=== PATIENT | male | born 1960 | race American Indian/Alaskan Native ===

== ENCOUNTER → 2023-04-07 11:59 | Outpatient (REF) | payer BC, SELFPAY ==
[2023-04-07 12:24] LABS: % Basophils 0.5 % (0-2); % Eosinophils 2.2 % (0-6); % Immature Granulocytes 0.2 % (0-0.5); % Lymphocytes 28.6 % (20.5-51.1); % Monocytes 8.5 % (1.7-9.3); Absolute Eosinophils 0.1 10^3/uL (0-0.7); Absolute Lymphocytes 1.7 10^3/uL (1.2-3.4); Absolute Monocytes 0.5 10^3/uL (0.1-0.6); Absolute Neutrophils 3.5 10^3/uL (1.4-6.5); Hematocrit 46.9 % (39.0-52.0); Hemoglobin 16.2 g/dL (13.0-18.0); Mean Corp Hgb Conc. 34.5 g/dL (33.0-37.0); Mean Corpuscular Hgb 30.6 pg (27.0-31.0); Mean Corpuscular Volume 88.5 fL (80.0-94.0); Mean Platelet Volume 9.9 fL (7.4-10.4); Nucleated Red Blood Cells % 0 % (-); Platelet Count 212 10^3/uL (130-400); Red Cell Dist. Width 12.6 % (11.5-14.5); White Blood Cell Count 5.9 10^3/uL (4.8-10.8)
[2023-04-07 12:55] LABS: ALT (SGPT) 31 U/L (0-50); AST (SGOT) 33 U/L (17-59); Albumin 4.3 g/dl (3.5-5.0); Alkaline Phosphatase 89 U/L (38-126); Blood Urea Nitrogen 20 mg/dl (9-20); Calcium 9.4 mg/dl (8.4-10.2); Carbon Dioxide 28 mmol/L (22-30); Chloride 104 mmol/L (98-107); Glucose 94 mg/dl (70-99); HDL Cholesterol 58 mg/dl; LDL Cholesterol, Calculated 26 mg/dl; Potassium 4.4 mmol/L (3.5-5.1); Sodium 136 mmol/L (135-145); Total Cholesterol 103 mg/dl (50-199); Total Protein 6.9 g/dl (6.3-8.2); Triglyceride 96 mg/dl (10-149); Very Low Density Lipoprotein 19 mg/dl (0-30); eGFR > 60.00
== END ==
LOC: REG 11:59
PROVIDERS: ATTENDING PHYSICIAN Internal Medicine Interventional Cardiology; FAMILY PHYSICIAN Family Medicine
DX: E78.2 Mixed hyperlipidemia (principal); I42.9 Cardiomyopathy, unspecified; I35.0 Nonrheumatic aortic (valve) stenosis; R79.89 Other specified abnormal findings of blood chemistry; Z83.3 Family history of diabetes mellitus
CPT/HCPCS: 36415; 80053; 80061; 83036; 85025

== ENCOUNTER → 2023-09-13 10:18 | Outpatient (REF) | payer BC, SELFPAY | LOC: RCS 10:18 | PROVIDERS: ATTENDING PHYSICIAN Internal Medicine Interventional Cardiology; FAMILY PHYSICIAN Family Medicine | DX: I42.9 Cardiomyopathy, unspecified (principal); I35.0 Nonrheumatic aortic (valve) stenosis; I42.8 Other cardiomyopathies | CPT/HCPCS: 93306 ==

== ENCOUNTER → 2023-10-11 09:08 | Outpatient (REF) | payer BC, SELFPAY | LOC: RCS 09:08 | PROVIDERS: ATTENDING PHYSICIAN Internal Medicine Interventional Cardiology; FAMILY PHYSICIAN Family Medicine | DX: I42.9 Cardiomyopathy, unspecified (principal); I42.8 Other cardiomyopathies; I35.0 Nonrheumatic aortic (valve) stenosis; I10 Essential (primary) hypertension | CPT/HCPCS: 93017; 93350 ==

== ENCOUNTER → 2023-11-02 14:01 | Outpatient (REF) | payer BC, SELFPAY ==
[2023-11-02 16:33] LABS: Blood Urea Nitrogen 18 mg/dl (9-20); Calcium 9.6 mg/dl (8.4-10.2); Carbon Dioxide 23 mmol/L (22-30); Chloride 104 mmol/L (98-107); Glucose 88 mg/dl (70-99); Potassium 4.6 mmol/L (3.5-5.1); Sodium 141 mmol/L (135-145); eGFR > 60.00
== END ==
LOC: REG 14:01
PROVIDERS: ATTENDING PHYSICIAN Internal Medicine Interventional Cardiology; FAMILY PHYSICIAN Family Medicine
DX: I10 Essential (primary) hypertension (principal); I42.8 Other cardiomyopathies
CPT/HCPCS: 36415; 80048

== ENCOUNTER → 2023-11-03 12:20 | Outpatient (REF) | payer BC, SELFPAY | LOC: RAD 12:20 | PROVIDERS: ATTENDING PHYSICIAN Internal Medicine Interventional Cardiology; FAMILY PHYSICIAN Family Medicine; REFERRING PHYSICIAN Thoracic Surgery (Cardiothoracic Vascular Surgery) | DX: I35.0 Nonrheumatic aortic (valve) stenosis (principal) | CPT/HCPCS: 75572; Q9967 ==

== ENCOUNTER 2023-12-09 05:16 | Inpatient (IN) | payer BC, SELFPAY ==
[2023-11-18 09:02] VITALS: BMI 30.5
[2023-11-18 09:47] LABS: % Basophils 0.3 % (0-2); % Immature Granulocytes 0.1 % (0-0.5); % Monocytes 9.4 % (1.7-9.3); % Neutrophils 68.2 % (42.2-75.2); Absolute Eosinophils 0.1 10^3/uL (0-0.7); Absolute Lymphocytes 1.4 10^3/uL (1.2-3.4); Absolute Monocytes 0.7 10^3/uL (0.1-0.6); Absolute Neutrophils 4.7 10^3/uL (1.4-6.5); Mean Corp Hgb Conc. 34.7 g/dL (33.0-37.0); Mean Corpuscular Hgb 30.5 pg (27.0-31.0); Mean Corpuscular Volume 87.8 fL (80.0-94.0); Mean Platelet Volume 10.4 fL (7.4-10.4); Nucleated Red Blood Cells % 0 % (-); Platelet Count 205 10^3/uL (130-400); Red Blood Cell Count 5.58 10^6/uL (4.70-6.10); Red Cell Dist. Width 12.5 % (11.5-14.5); White Blood Cell Count 6.9 10^3/uL (4.8-10.8)
[2023-11-18 09:47] LABS: Urine Albumin Negative (Neg - Trace); Urine Bilirubin Negative (Negative); Urine Character Clear (Clear); Urine Color Yellow; Urine Glucose 3+ (Negative); Urine Ketone Negative (Negative); Urine Leukocyte Negative (Negative); Urine Nitrite Negative (Negative); Urine Occult Blood Negative (Negative); Urine Specific Gravity 1.015 (<1.030); Urine Urobilinogen Negative (Neg - 1+)
[2023-11-18 09:57] LABS: APTT 36.1 Sec (23.4-35.0)
[2023-11-18 10:05] LABS: ALT (SGPT) 30 U/L (0-50); AST (SGOT) 29 U/L (17-59); Albumin 4.7 g/dl (3.5-5.0); Alkaline Phosphatase 87 U/L (38-126); Blood Urea Nitrogen 18 mg/dl (9-20); Calcium 9.8 mg/dl (8.4-10.2); Carbon Dioxide 26 mmol/L (22-30); Chloride 101 mmol/L (98-107); Direct Bilirubin 0.2 mg/dl (0.0-0.4); Estimated Creatinine Clearance 92 ml/min; Glucose 98 mg/dl (70-99); Potassium 3.9 mmol/L (3.5-5.1); Sodium 139 mmol/L (135-145); Total Bilirubin 1.1 mg/dl (0.2-1.3); Total Protein 7.2 g/dl (6.3-8.2); eGFR > 60.00
--- NOTE | 2023-11-18 10:49 | CM ---
CM following for DC planning needs.
Met w/ patient, spouse Leslie during PATs for planned AVR, 12/08.
Pt. resides w/ spouse in a private, 1 story home w/ 0 GRAHAM. Functionally, patient is quite indep. at baseline w/ ADLs, mobility without the use of any assisted device.
Reviewed pre and post op routines.
Soap, shower instructions and Cardiac Surgery booklet provided.
Reviewed post op restrictions to include lifting, driving, flying and sternal precautions.
Discussed post op MD appointments, Cardiac Rehab + visit from CT Transitional Care RN.
Plan is AVR, 12/08.
Anticipate DC to home w/ CT Transitional Care RN.
CM to follow.
[2023-11-18 10:54] LABS: Glycohemoglobin (HgbA1c) 5.7 % (4.0-5.6)
[2023-12-09] VITALS (11 sets, daily range): BP systolic 93–140; BP diastolic 52–67; BMI 29.5
[2023-12-09] MEDS: MAGNESIUM OXIDE 500 MG PO (05:54)
[2023-12-09] MEDS: PROTONIX 40 MG PO (05:55)
[2023-12-09] MEDS: BACTROBAN 2% OINTMENT 1 APPLIC NASAL ×2 (05:55→19:52)
[2023-12-09] MEDS: LOPRESSOR 12.5 MG PO (05:55)
--- NOTE | 2023-12-09 06:05 | W.CVOR.SURPR ---
CVOR Surgeon Immed Pre Op
-
I have examined this patient prior to performance of the scheduled procedure.
The patient's condition is unchanged from the time of the dictated/written History and
Physical and the patient is able to undergo the scheduled procedure.
Mild/Mod depressed EF in setting of severe
AVR(bio) + WENDI Clip
[2023-12-09 07:08] LABS: ACT+ - POC 98 Seconds (82-134)
[2023-12-09 07:26] LABS: Urine Albumin Trace (Neg - Trace); Urine Bilirubin Negative (Negative); Urine Character Clear (Clear); Urine Color Yellow; Urine Glucose 1+ (Negative); Urine Ketone 1+ (Negative); Urine Leukocyte Negative (Negative); Urine Nitrite Negative (Negative); Urine Occult Blood Negative (Negative); Urine Specific Gravity 1.025 (<1.030); Urine Urobilinogen Negative (Neg - 1+)
[2023-12-09 08:38] LABS: B.E. - POC -2.7 mmol/L; Glucose - POC 105 mg/dl (70-99); HCO3 - POC 23 mmol/L (21-29); Hematocrit - POC 41 % PCV (42-52); Hemodilution- POC No; Hemoglobin Calculated - POC 13.9; Ionized Calcium - POC 1.15 mmol/L (1.12-1.27); O2 Saturation %Calculated-POC 99.8 % (92-96); PCO2 - POC 41 mmHg (35-45); PO2 - POC 256 mmHg (80-100); POC Comment PRE; Sodium - POC 146 mmol/L (135-145); pH - POC 7.35 (7.35-7.45)
--- NOTE | 2023-12-09 08:42 | CM ---
Reviewed chart. Mr. Monterroso is in the operating room today. Prior to admission he resides with his spouse in a one story without any steps to enter. Prior to admission he was independent with ambulation and adls. He does not have any DME in the
home. He has a prescription plan and uses [facility]. Medical work-up in progress. The discharge plan is to return home with his spouse and a home visit by the Transitional Care Nurse when medically stable
[2023-12-09 09:17] LABS: B.E. - POC 2.7 mmol/L; Glucose - POC 147 mg/dl (70-99); HCO3 - POC 26 mmol/L (21-29); Hematocrit - POC 32 % PCV (42-52); Hemodilution- POC Yes; Hemoglobin Calculated - POC 10.9; Ionized Calcium - POC 0.97 mmol/L (1.12-1.27); O2 Saturation %Calculated-POC 99.9 % (92-96); PCO2 - POC 36 mmHg (35-45); PO2 - POC 249 mmHg (80-100); POC Comment CPB; Potassium - POC 5.4 mmol/L (3.6-5.0); Sodium - POC 139 mmol/L (135-145); pH - POC 7.47 (7.35-7.45)
[2023-12-09 09:53] LABS: B.E. - POC -0.7 mmol/L; Glucose - POC 207 mg/dl (70-99); HCO3 - POC 25 mmol/L (21-29); Hematocrit - POC 39 % PCV (42-52); Hemodilution- POC Yes; Hemoglobin Calculated - POC 13.2; Ionized Calcium - POC 1.04 mmol/L (1.12-1.27); O2 Saturation %Calculated-POC 99.2 % (92-96); PCO2 - POC 43 mmHg (35-45); PO2 - POC 145 mmHg (80-100); POC Comment WARM; Potassium - POC 6.4 mmol/L (3.6-5.0); Sodium - POC 138 mmol/L (135-145); pH - POC 7.37 (7.35-7.45)
[2023-12-09 09:58] LABS: ACT+ - POC 107 Seconds (82-134)
[2023-12-09] MEDS: VITAMIN D3 (cholecalciferol) PO (10:10)
[2023-12-09] MEDS: NEURONTIN PO ×2 (10:17→16:14)
--- NOTE | 2023-12-09 10:28 | CON.INTV ---
Consultation
Consultation Request
Date/Time Consultation Requested: 12/09/2023 - 09
Date/Time Consultation Performed: 12/09/2023 - 1018
Requesting Provider: Kenna Barraza PA-C
Performing Provider: Eric Henley MD
Reason for Consultation: s/p SAVR
Medical History
-
Chief Complaint: Elective SAVR
History of Present Illness:
63-year-old male non-smoker with a past medical history of moderate-severe aortic valve stenosis with history of LBBB, hypertension, hyperlipidemia and chronic HFrEF who presents with surgical aortic valve replacement. Patient known to
cardiothoracic surgery with last visit on 11/09/[address] Mathews. Patient had an echo done on 09/13/2023 showing severe aortic stenosis with mild aortic insufficiency, with peak/mean gradients of 61/35 mm, respectively. His LVEF was reduced at 40%
with no regional WMA. His EF was previously 52% on prior echo from December 2022. Left + right heart cath in August 2022 showed nonobstructive CAD with moderate aortic stenosis with transaortic mean gradient at that time of 30 mmHg. Surgical aortic
valve replacement was discussed, and a CT TAVR was performed on 11/03/2023 showing minimal bronchiectasis in the right lower lobe with dependent atelectasis bilaterally. Today he underwent surgical aortic valve replacement with a 27 mm
bioprosthesis, and also underwent left atrial appendage exclusion with a 35mm clip. There were no immediate complications and he was transferred to the CVICU postoperatively for further care. Daycare Director services consulted for additional
management/recommendations.
When I saw the patient he was resting in bed in no acute distress on SIMV at: 12/600/40%/5, with PIP: 20 cmH2O, VTe 630 mL and breathing at 12 breaths/min. Heart rate 55, BP via left radial A-line: 89/52, PAP: 33/16, CVP: 10, CO/CI: 3.85/1.87,
respectively. He was on Levophed at 5mcgmin + insulin drip at 2.3 units/hr. He has mediastinal chest tubes x 2.
PMHx: Lactose intolerance, hypertension, hyperlipidemia, aortic stenosis, cardiomyopathy, history of LBBB
PSHx: Left middle finger fracture repair, robotic assisted laparoscopic repair of right inguinal hernia with mesh, large back sebaceous cyst excision (May 2021
Past Medical History
Past Medical History: Other (Above as per HPI)
Past Surgical History: Other (Above as per HPI)
Social History
Tobacco: Non-smoker
Alcohol: None
Drug: None
Personal:
Living: With Family
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
Family History
Family History: CAD (Father), Cancer (Maternal grandmother: Endometrial cancer) and Other (Sister: Migraine headaches, schizophrenic)
Allergies / Home Medications
Allergies
Allergy/AdvReac Type Severity Reaction Status Date / Time
lactose Allergy gi issues Verified 11/15/23 12:55
latex Allergy hives, Verified 11/15/23 12:55
itching
Penicillins Allergy Itching Verified 11/15/23 12:55
pollen extracts Allergy seasonal Verified 11/15/23 12:55
allergies
ibuprofen [From Motrin] AdvReac disorientat Verified 11/15/23 12:55
ion
Home Medications
�Medication �Instructions �Recorded �Confirmed �Last Taken �Type
fluticasone propionate 50 1 spray intranasal PRN PRN nasal 04/14/21 12/09/23 12/08/23 23:00 History
mcg/actuation nasal congestion
spray,suspension
lactase 3,000 unit tablet (Dairy 1 cap PO PRN PRN lactose 04/14/21 12/09/23 12/07/23 History
Relief) intollerance
metoprolol succinate 25 mg 25 mg PO HS 09/06/22 12/09/23 12/08/23 23:30 History
tablet,extended release 24 hr
rosuvastatin 20 mg tablet 20 mg PO HS 09/06/22 12/09/23 12/08/23 23:30 History
aspirin 81 mg capsule 81 mg PO HS 11/15/23 12/09/23 12/08/23 23:30 History
cholecalciferol (vitamin D3) 125 125 mcg PO DAILY 11/15/23 12/09/23 12/01/23 12:00 History
mcg (5,000 unit) tablet (Vitamin
D3)
dapagliflozin propanediol 10 mg 10 mg PO HS 11/15/23 12/09/23 12/05/23 03:30 History
tablet (Farxiga)
sacubitril 24 mg-valsartan 26 mg 1 tab PO BID 11/15/23 12/09/23 12/06/23 12:00 History
tablet (Entresto)
Review of Systems
-
Unable to Obtain full review of systems at this time due to: Patient Intubation
Vitals / Labs / Diagnostic Testing
Vital Signs
Temp Pulse Resp BP Pulse Ox
98 F 83 14 112/66 97
12/09/23 18:00 12/09/23 18:08 12/09/23 18:00 12/09/23 16:08 12/09/23 18:08
Lab Data
12/09/23 14:59
12/09/23 10:50
Laboratory Results
12/09/23 12/09/23 12/09/23
10:50 15:00 15:53
PT 18.6 H
INR 1.57
APTT 37.5 H
pH 7.36 Cancelled 7.47 H
pCO2 42 Cancelled 32 L
pO2 118 H Cancelled 180 H
HCO3 23.7 Cancelled 23.3
O2 Delivery Level Cancelled
Diagnostic Testing:
Physical Exam
-
HEENT: Normocephalic and Anicteric
Cardiovascular: S1/S2 and Peripheral Edema (negative)
Respiratory: Wheeze (negative), Rales (negative), Rhonchi (negative), Other (Mechanical breath sounds heard bilaterally) and Other (Chest tubes: Mediastinal chest tubes x 2)
GI: Soft, Non Distended, Non Tender and Normal Bowel Sounds
Neurology: Tremors (negative) and Other (Sedated)
Skin: Warm and Dry
General: Respiratory Distress (negative), Chills (negative) and Sweats (negative)
Assessment
-
Assessment: 63-year-old male non-smoker with a past medical history of moderate-severe aortic valve stenosis with history of LBBB, hypertension, hyperlipidemia and chronic HFrEF who presents with surgical aortic valve replacement. Patient known to
cardiothoracic surgery with last visit on 11/09/[address] Mathews. Patient had an echo done on 09/13/2023 showing severe aortic stenosis with mild aortic insufficiency, with peak/mean gradients of 61/35 mm, respectively. His LVEF was reduced at 40%
with no regional WMA. His EF was previously 52% on prior echo from December 2022. Left + right heart cath in August 2022 showed nonobstructive CAD with moderate aortic stenosis with transaortic mean gradient at that time of 30 mmHg. Surgical aortic
valve replacement was discussed, and a CT TAVR was performed on 11/03/2023 showing minimal bronchiectasis in the right lower lobe with dependent atelectasis bilaterally. Today he underwent surgical aortic valve replacement with a 27 mm
bioprosthesis, and also underwent left atrial appendage exclusion with a 35mm clip. There were no immediate complications and he was transferred to the CVICU postoperatively for further care. Daycare Director services consulted for additional
management/recommendations.
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
Impression:
#Severe aortic valve stenosis with moderate aortic insufficiency s/p surgical aortic valve replacement with 27 mm bioprosthesis + WENDI�exclusion with 35mm clip (POD #0)
#Chronic HFrEF/NICM
#Hyperlipidemia
#Hypertension
#History of LBBB
Plan:
Ventilator settings reviewed
FiO2 will be weaned to maintain SpO2 >90-94%
Minute ventilation will be adjusted
Arterial blood gases will be monitored
Spontaneous breathing trial will be attempted with hopeful extubation after anesthesia/sedation wear off
prn nebulized bronchodilators
Pulmonary artery catheter parameters will be followed
Pressors/antihypertensive/inotropes/diuretics will be provided as needed
Maintain MAP>65
Replete electrolytes with K>4, Mg>2
Monitor chest tube output
Monitor hemoglobin
Monitor platelet count and coags
Transfuse blood products as needed to maintain Hb>7g/dL, plt>50k (given post-operative status)
CT surgery managing chest tubes
Monitor blood sugar to maintain euglycemia with goal BG 140-180
Insulin drip per protocol
Aspiration precautions
VAP prevention protocol
DVT prophylaxis
Early nutrition
Early mobilization
Critical care statement: A total of 46 minutes of critical care time was provided for this patient today. This includes management of ventilator, spontaneous breathing trial, arterial blood gases, pressors, of unstable vital signs, evaluation of the
patient at bedside, reviewing the patient's pertinent medical records including radiographs, microbiology, laboratory evaluations, and discussion with primary team and critical care nursing.
--- NOTE | 2023-12-09 10:29 | W.PN.CT.SURG ---
CT Surgery Operative Note
-
CARDIAC SURGERY OPERATIVE REPORT
Preoperative Diagnosis: Aortic valve stenosis (severe) with moderate insufficiency with moderately reduced left ventricular function
Postoperative Diagnosis: Same
Procedure(s) Performed:
1. Sternotomy with standard aortic and right atrial cannulation
2. Surgical aortic valve replacement [27 mm bioprosthesis]
3. Left atrial appendage exclusion [35 mm clip]
4. Transesophageal echocardiography
5. Placement of temporary ventricular pacing wire
Date of Surgery: 12/09/2023
Comorbidities:
1. Severe aortic valve stenosis with moderate degree of insufficiency, mixed pathology
2. Non ischemic Cardiomyopathy, Chronic Systolic and Diastolic Dysfunction with Moderately reduced left ventricular ejection fraction likely secondary to valvular pathology
3. Hyperlipidemia
4. Hypertension
Attending Surgeon: Zaki Mathews MD, MS
Assistants: Kae Ortega PA-C (present and necessary to assistant manager bilingual, retraction, suction, exposure, suture management, and wound closure under my direction)
Anesthesiology: Tereso Fonseca MD and Codey Carrasco CRNA
Scrub and Circulating RNs: Modesta Martinez RN, Lashawn Vargas RN
Psychiatric Technician Assistant: Taye Saeed CCP
Anesthesia: GETA
EBL: per perfusion records
Products: None
CPB Time: 83 minutes
Aortic Cross Clamp Time: 68 minutes
Indication(s) for Procedures: This is a 63-year-old male who was incidentally found to have a new left bundle branch block and later underwent an echocardiogram. He was found to have a depressed left ventricular ejection fraction with aortic valve
stenosis. Left heart cath did not demonstrate any obstructive coronary artery disease. His calculated aortic valve area was less than 1 with mixed pathology aortic valve stenosis and AI. Given his drop in left ventricular ejection fraction, his
young age and good size valve, he was counseled between pursuing transcatheter intervention versus surgical intervention with the intent of lifelong planning for his aortic valve disease. Multidisciplinary team discussion ultimately came to the
consensus and recommendation for surgical aortic valve replacement with future TAVR. TAVR CT scan was performed in preparation.
Aortic Valve Description: Heavily calcified, essentially bicuspid aortic valve with left right fusion, and heavy infiltration of calcium into the annulus. Left and right coronary ostium within normal anatomic positions, good coronary heights.
Findings: Left ventricular ejection fraction presurgery was approximately 40%, global hypokinesis with no significant regional wall motion abnormalities. Following surgery, his EF had improved to 55% without inotropic support. His aortic valve is
heavily calcified with dense calcium infiltrating into the noncoronary cusp towards the aorto mitral curtain. He also had a apparent chordae tendon a from the A1 segment of the mitral valve going towards the muscular septum. This was left alone as
it was inserting into the free margin. His aortic valve was replaced with a total of 15 nonpledgeted 2 Ethibond sutures securing a 27 mm bioprosthesis with core knots. This was placed in inverted fashion from LVOT through annulus through sewing
cuff. There is no paravalvular leak, mean gradient across the new valve was approximately 6 mmHg. There is normal excursion of all leaflets. He did not require any inotropic support. Did not require any blood products. And was in sinus rhythm
following surgery. Cardiac index was well over 2.5 without inotropic support.
Specimen(s): Aortic valve leaflet.
Prosthesis:
1. 27 mm bioprosthesis, Ballesteros Inspiris Resilia aortic valve, serial #[id number]
2. 35 mm clip, serial #[id number]
Description of Procedure: The patient was taken to the operating room. Their identity and procedure to be performed were verified and they were positioned supine on the operating table. Induction via general anesthesia with endotracheal intubation
was performed and central venous access and arterial monitoring were inserted. A preoperative transesophageal echocardiogram was performed to assess cardiac function and valvular function. The patient was then prepped and draped from chin to feet in
a sterile fashion. A preoperative time-out was performed with all members of the team present. A midline chest incision was performed along with median sternotomy. The innominate vein was isolated. Full heparinization was given (a total of 50,000
units). We created a pericardial well. The aortic cannulation site was chosen where it was soft, pliable, and free of calcium. Cannulation was performed with an arterial cannula in the ascending aorta and a triple-stage venous cannula through the
right atrial appendage. The arterial cannula line had an appropriate bounce and correlating pressures with test dosing. Next, a root vent/antegrade cannula was inserted into the ascending aorta. The ACT was confirmed to be over 400 and retrograde
autologous priming was performed before commencing cardiopulmonary bypass. A retrograde coronary sinus catheter was placed via the right atrium under echo guidance and manual palpation. The pulmonary artery was away from the aorta to
facilitate a clamp site and aortotomy. A left ventricular vent was placed at the right superior pulmonary vein and secured. The aortic cross-clamp was placed after decreasing the flow on the bypass and mean arterial pressure. A total of 800L initial
dose of antegrade Del-Nido cardioplegia solution was given followed by 400 of retrograde and planned for re-dosing every 75 minutes as necessary. There is still some atrial activity although the ventricle was quiescent. At this point CO2 was used
to flood the field and a small aortotomy was created and extended in an oblique fashion. Stay sutures were placed and additional 150 cc of cardioplegia was given directly down the right ostium with a rapid electromechanical quiescence of the
atrium. Cold slush was placed into a sponge and topically on the RV while we systemically cooled to 34 degrees centigrade. I then mobilized the heart in order to expose the left atrial appendage. This was sized to a 35 mm clip which was applied
flush to the base.
The location of both left and right coronary vessels were visualized in the root.The leaflets were excised and sent for pathological assessment. The annulus was debrided of any calcium being mindful of the annulus and membranous septum. The root and
left ventricular outflow tract were thoroughly irrigated to remove any debris. A total of 15 Non-pledgeted 2-0 ethibond inverted annular sutures were placed [id number] circumferentially. These were brought through the sewing cuff of the
prosthetic valve which as then parachuted into place. The left and right coronary ostia were visualized and were unobstructed by the valve. A Cor-Knot device was used to secure the annular sutures. The valve was inspected and was well seated. The
aortotomy was approximated with 4-0 prolene in two layers. De-airing maneuvers were performed and temporary bipolar ventricular pacing wires were placed on the base of the right ventricle. The patient was placed in a Trendelenburg position and flows
on bypass were lowered. The aortic cross clamp was removed and flows were slowly brought back up. The aortotomy appeared hemostatic. The retrograde coronary sinus catheter was removed and tied down and oversewn with 4-0 Prolene. Transesophageal
echocardiography revealed no paravalvular leak and appropriate prosthetic function. Once de-airing was satisfactory, the left ventricular and root vents were removed. After verifying acceptable parameters, we initiated weaning from cardiopulmonary
bypass. Once we were off cardiopulmonary bypass, the venous cannula was clamped and removed. A test dose of protamine was administered and the patient was monitored for any adverse reaction before resuming protamine. Once half of the protamine dose
was delivered, pump suckers were turned off and the systolic blood pressure was lowered for aortic decannulation. The aortic cannula was removed and pursestrings were tied down. All cannulation sites were oversewn with a 4-0 prolene. The aortotomy
suture line was inspected and hemostasis was confirmed. Mediastinal hemostasis was obtained. Two 24Fr Koko drains were placed within the pericardium. The sternum was approximated with 4 #7 single and 3 #8 double stainless steel wires. Fascia was
approximated with #1 vicryl suture. The subcutaneous, dermis and epidermis were closed in layers in a running fashion. The skin wound was cleansed and dressed.
All instrument, sponge, and needle counts were confirmed to be correct x 2 at the end of the operation. The patient was transferred to the cardiac intensive care unit in critical but stable condition.
I, Dr. Zaki Mathews, was present, scrubbed for, and performed all critical elements of this procedure.
Zaki Mathews MD, MS
Cardiothoracic Surgeon
[facility]
This operative dictation was created using the [employer] dictation system. Please excuse any grammatical, typographical, or 'sound alike' errors
[2023-12-09 10:32] LABS: B.E. - POC -2.2 mmol/L; Glucose - POC 227 mg/dl (70-99); HCO3 - POC 24 mmol/L (21-29); Hematocrit - POC 35 % PCV (42-52); Hemodilution- POC Yes; Hemoglobin Calculated - POC 11.8; O2 Saturation %Calculated-POC 99.9 % (92-96); PCO2 - POC 44 mmHg (35-45); PO2 - POC 286 mmHg (80-100); POC Comment POST; Potassium - POC 4.5 mmol/L (3.6-5.0); Sodium - POC 143 mmol/L (135-145); pH - POC 7.34 (7.35-7.45)
--- NOTE | 2023-12-09 10:51 | W.PN.CARDCBS ---
Addendum entered and electronically signed by Raul Menon MD 12/09/23 16:18:
I saw and examined the patient.
The Concrete Sculptor's note was reviewed and I agree with the note.
Comment:
GEN: No distress, awake, intubated
HEENT: supple, anicteric, mmm, ET tube
LUNGS: CTA, no wheezes/rales
CV: Reg, S1/S2, no murmur
ABD: soft, BS+, NT/ND
EXT: No edema
NEURO: Gross non-focal
SKIN: sternotomy
Plan:
doing well. Remains in sinus rhythm.
Wean Levophed as tolerated. Wean to extubate.
Original Note:
Today's Communication / Plan
-
continue post op care
follow rhythm
Impression / Plan
-
Primary Environmental Resource Specialist: Dr. Kwan
Assessment:
Severe s/p bioprosthetic AVR, WENDI clip
NICM, EF 40%, EF improved to 55% by post op KARUNA
HTN
HLD
LBBB, chronic
History of inguinal hernia repair
ECHO 09/13/23: EF 40%, mild concentric LVH, stage I diastolic dysfunction, mild AR, severe with peak/mean gradient 61/35 mmHg, PHYLLIS 0.7 cm�
Plan:
-s/p bioprosthetic AVR, WENDI clip 12/09/23
-EF was noted to improved by post op KARUNA to 55% off pressors
-intubated, sedated
-currently on levo@4, wean as able
-EKG SR with LBBB (chronic) and PVCs, follow on tele
-follow hgb
-continue post op care
-was on toprol, entresto, farxiga prior to admission for NICM
-d/w nursing
Progress Note - Environmental Resource Specialist
Subjective
Date of Service: December 09, 2023
intubated, sedated
Objective
Labs:
Labs
Hgb 17.0 g/dL (13.0-18.0) 11/18/23 09:21
Hct 49.0 % (39.0-52.0) 11/18/23 09:21
Plt Count 205 10^3/uL (130-400) 11/18/23 09:21
PT 14.0 Sec (11.4-14.6) 11/18/23 09:21
INR 1.10 11/18/23 09:21
APTT 36.1 Sec (23.4-35.0) H 11/18/23 09:21
Sodium 139 mmol/L (135-145) 11/18/23 09:21
Potassium 3.9 mmol/L (3.5-5.1) 11/18/23 09:21
BUN 18 mg/dl (9-20) 11/18/23 09:21
Creatinine 0.9 mg/dL (0.7-1.3) 11/18/23 09:21
Glucose 98 mg/dl (70-99) 11/18/23 09:21
Vital Signs and I&O:
Vital Signs
Pulse BP
88 127/82
12/09/23 05:55 12/09/23 05:55
Vital Signs
Pulse BP
88 127/82
12/09/23 05:55 12/09/23 05:55
Physical Exam
Physical Exam
GEN: No distress, intubated, sedated
HEENT: supple, mmm
LUNGS: CTA B/L, no wheezes/rales
CV: Reg, S1/S2, no murmur
ABD: soft, NT/ND
EXT: No cyanosis, clubbing, edema
NEURO: sedated
SKIN: Warm, pink, dry. No rash. Sternotomy incision c/d/i. CTs in place. PW in place.
[2023-12-09 10:54] LABS: Glucose - Point of Care 156 mg/dl (70-99)
[2023-12-09] MEDS: NSS 500 IV (10:58)
[2023-12-09] MEDS: ANCEF 10 IV ×2 (10:58)
[2023-12-09 10:59] LABS: Hematocrit 35.2 % (39.0-52.0); Hemoglobin 12.3 g/dL (13.0-18.0); Platelet Count 116 10^3/uL (130-400)
[2023-12-09 11:09] LABS: INR 1.57; Mixed Venous O2 Saturation 78.4 %; PT 18.6 Sec (11.4-14.6)
[2023-12-09 11:10] LABS: APTT 37.5 Sec (23.4-35.0)
[2023-12-09 11:12] LABS: B.E. -1.8 mmol/L; Blood Urea Nitrogen 23 mg/dl (9-20); Estimated Creatinine Clearance 82 ml/min; Glucose 156 mg/dl (70-99); HCO3 23.7 mmol/L (21-28); Ionized Calcium 1.21 mMOL/L (1.15-1.33); Magnesium 2.7 mg/dl (1.6-2.3); O2 Saturation % 99.5 % (94-98); PCO2 42 mmHg (35-48); PO2 118 mmHg (83-108); Potassium 4.2 mMOL/L (3.5-5.1); Sodium 137 mMOL/L (136-145); pH 7.36 (7.35-7.45)
--- NOTE | 2023-12-09 11:30 | PTCARENOTE ---
Patient received from CVOR s/p AVR/LAAL. Dr. Mathews, CVOR team, and CVICU receiving RN to bedside for handoff report. RIJ Cordis/Roslindale-Emiliano catheter, L radial arterial lines present - leveled, flushed, and calibrated w/good waveforms returned.
Epicardial V-wire to pulse generator, off. Mediastinal chest tubes x 2, Y-connected to one pleurevac - placed to -20cm suction w/no air leak noted. García catheter to gravity. All procedural sites stable. Labs drawn, EKG performed, pcxr obtained. See
work list for full assessment, interventions performed, and intravenous medication infusions and titrations.
[2023-12-09 11:59] LABS: Glucose - Point of Care 151 mg/dl (70-99)
[2023-12-09] MEDS: OFIRMEV 100 IV (12:11)
[2023-12-09] MEDS: LACTATED RINGERS 250 ML IV ×2 (12:22→13:36)
[2023-12-09 12:58] LABS: Glucose - Point of Care 113 mg/dl (70-99)
[2023-12-09] MEDS: TYLENOL PO (13:02)
[2023-12-09 14:03] LABS: Glucose - Point of Care 134 mg/dl (70-99)
[2023-12-09] MEDS: TORADOL 15 MG IV (14:35)
[2023-12-09 15:02] LABS: Glucose - Point of Care 127 mg/dl (70-99)
[2023-12-09] MEDS: ZOFRAN 4 MG IV (15:25)
[2023-12-09 15:28] LABS: Hemoglobin 13.4 g/dL (13.0-18.0); Platelet Count 182 10^3/uL (130-400)
[2023-12-09] MEDS: DILAUDID 0.25 MG IV (15:30)
[2023-12-09 16:04] LABS: B.E. 0.4 mmol/L; HCO3 23.3 mmol/L (21-28); Ionized Calcium 1.18 mMOL/L (1.15-1.33); PCO2 32 mmHg (35-48); PO2 180 mmHg (83-108); Potassium 4.1 mMOL/L (3.5-5.1); pH 7.47 (7.35-7.45)
[2023-12-09] MEDS: PACERONE PO (16:14)
--- NOTE | 2023-12-09 16:35 | RESPNOTE ---
Respiratory: Patient extubated without incident no stridor no wheeze.
[2023-12-09] MEDS: LOW STRENGTH ASPIRIN 81 MG PO (16:52)
[2023-12-09 16:58] LABS: Glucose - Point of Care 122 mg/dl (70-99)
--- NOTE | 2023-12-09 17:16 | PTCARENOTE ---
Patient displayed evidence assisting and overbreathing ventilator. CPAP wean initiated. ABG obtained, results conveyed to ALLISON Mao. Patient sleepy but arousable, MIR, follows commands. Patient extubated to 6lnc w/out incident, tolerated well.
to bedside.
[2023-12-09] MEDS: ROXICODONE 5 MG PO ×2 (18:02→23:18)
[2023-12-09] MEDS: ANCEF 5 IV (18:03)
[2023-12-09 19:01] LABS: Glucose - Point of Care 117 mg/dl (70-99)
[2023-12-09 19:57] LABS: Glucose - Point of Care 119 mg/dl (70-99)
[2023-12-09 21:18] LABS: Glucose - Point of Care 99 mg/dl (70-99)
--- NOTE | 2023-12-09 21:30 | PTCARENOTE ---
Report received from ZENOBIA Nazario. Walking rounds done. Pt assessed at 1999. at bedside. Pt awake, alert, oriented x 4. Speech clear. Moves all extremities equally. Pt on 3L/NC. Sats 95%. CDB encouraged. BBS present. Decreased to B bases.
Audible heart tones. Pt in SR with LBBB and monomorphic PVCs. Levo gtt titrated to 3 mcg/min to keep MAP > 65, per protocol. CI done and is 2.58. All lines levelled and zeroed on [place] and L radial A-line. Mediastinal CTs x 2 to -20 cm suction,
sanguinous drainage. V wire attached to temporary PM, backup rate 40, mA 10, sens 2. For pulse and wound assessments, see flowsheets. Belly soft, nontender. Hypoactive bs x 4. No c/o nausea. Indwelling urinary catheter draining clear, yellow urine.
Hourly UO and CT output monitored. home for evening.
[2023-12-09] MEDS: CALCIUM GLUCONATE 130 MG IV (22:01)
[2023-12-09] MEDS: SENOKOT-S 1 TABLET PO (22:01)
[2023-12-09] MEDS: NEURONTIN 100 MG PO (22:02)
[2023-12-09] MEDS: TYLENOL 1000 MG PO (22:02)
[2023-12-09] MEDS: PACERONE 200 MG PO (22:02)
[2023-12-09] MEDS: CRESTOR 20 MG PO (22:02)
[2023-12-09 22:26] LABS: Glucose - Point of Care 103 mg/dl (70-99)
--- NOTE | 2023-12-09 23:20 | PTCARENOTE ---
Ca Gluconate 3 Gm IV given per order of PA. Repeat CI is 3.07. UO ~ 25 mls/hr. Pt c/o sternal pain with IS exercises. Roxicodone 5 mg po given for c/o 7/10 sternal pain. No changes since last neuro assessment. Glycemic protocol maintained.
[2023-12-09 23:31] LABS: Glucose - Point of Care 99 mg/dl (70-99)
[2023-12-10] VITALS (15 sets, daily range): BP systolic 98–120; BP diastolic 60–71; PULSE 81; O2SAT 95–96; BMI 30.6
[2023-12-10 00:50] LABS: Glucose - Point of Care 106 mg/dl (70-99)
[2023-12-10] MEDS: ANCEF 5 IV ×2 (02:11→11:16)
[2023-12-10 02:40] LABS: Glucose - Point of Care 93 mg/dl (70-99)
[2023-12-10 02:55] LABS: Hematocrit 34.3 % (39.0-52.0); Hemoglobin 12.1 g/dL (13.0-18.0); Mean Corp Hgb Conc. 35.3 g/dL (33.0-37.0); Mean Corpuscular Volume 85.1 fL (80.0-94.0); Mean Platelet Volume 10.4 fL (7.4-10.4); Platelet Count 147 10^3/uL (130-400); Red Blood Cell Count 4.03 10^6/uL (4.70-6.10); White Blood Cell Count 12.9 10^3/uL (4.8-10.8)
[2023-12-10 03:07] LABS: INR 1.26; PT 15.6 Sec (11.4-14.6)
[2023-12-10 03:14] LABS: Blood Urea Nitrogen 23 mg/dl (9-20); Calcium 8.9 mg/dl (8.4-10.2); Carbon Dioxide 25 mmol/L (22-30); Chloride 106 mmol/L (98-107); Estimated Creatinine Clearance 82 ml/min; Glucose 89 mg/dl (70-99); Potassium 4.2 mmol/L (3.5-5.1); Sodium 142 mmol/L (135-145); eGFR > 60.00
--- NOTE | 2023-12-10 03:20 | PTCARENOTE ---
Labs drawn and sent. Most recent CI is 2.42. Pt repositioned onto R side. CDB and IS encouraged. IS peak 1999.
--- NOTE | 2023-12-10 03:39 | W.PN.CT ---
Addendum entered and electronically signed by Osman Prescott MD 12/10/23 08:54:
I saw and examined the patient.
The PA's note was reviewed and I agree with the note.
Comment:
POD#1 s/p AVR/ELAA
No major overnight events. De-lined. [facility] D/C'd
- Maintain CT today
- Maintain Cordis
- OOB/IS/ambulate
Original Note:
Today's Communication / Plan
-
Plan:
-No major issues overnight. Hemodynamically and neurologically intact
-Successfully extubated on 12/09/23 @ 1716
-Weaned of Levophed gtt overnight. Remains on insulin gtt per protocol
-CI 2.42, MVO2 72%, U/O since OR 865 mL
-D/C'd swan and a-line today @ 0500
-D/C'd [facility] @ 0600
-Will transfer to [facility] today once of insulin gtt
-Monitor chest tube drainage: 2meds 230/400
-Cont. current meds (ASA, Amiodarone, Crestor; will switch Lopressor to Toprol XL and hold today given low BP postop)
-Maintain cordis
-Maintain temporary PW (will pull in 1-2 days)
-Wean off of O2 as tolerated
-Encourage use of IS
-OOB into chair/Ambulate
Assessment / Plan
-
Assessment:
-S/P Sternotomy with standard aortic and right atrial cannulation/Surgical aortic valve replacement [27 mm bioprosthesis]/Left atrial appendage exclusion [35 mm clip], by Dr. Mathews, 12/09/23, pod#1
-Severe aortic valve stenosis with moderate degree of insufficiency, mixed pathology
-Non ischemic Cardiomyopathy, Chronic Systolic and Diastolic Dysfunction with Moderately reduced left ventricular ejection fraction likely secondary to valvular pathology
-LVEF 35-40% preop, improved to 50-55% postop per intraop KARUNA
-Hyperlipidemia
-Hypertension
-Class 1 obesity (BMI 29.4)
-Prediabetes (hgb A1C 5.7)
-S/p Removal of back sebaceous cyst
-S/p R Inguinal herniorrhaphy
-Acute postop blood loss/Anemia (stable without blood transfusion)
-Acute postop thrombocytopenia (stable without blood transfusion)
-Acute postop atelectasis
-Acute postop hypovolemia with subsequent hypervolemia
Discussed patient care with: Cardiology, Nursing, Respiratory Therapy, Pharmacy and Care Team
Subjective
Procedure
S/P Sternotomy with standard aortic and right atrial cannulation/Surgical aortic valve replacement [27 mm bioprosthesis]/Left atrial appendage exclusion [35 mm clip], by Dr. Mathews, 12/09/23
-
Date of Service: December 10, 2023
No issues overnight, denies CP/SOB. C/O incisional pain, otherwise feels well
Objective Data
-
Lab Results
12/10/23 02:35
12/10/23 02:35
PT 15.6 Sec (11.4-14.6) H 12/10/23 02:35
INR 1.26 12/10/23 02:35
APTT 37.5 Sec (23.4-35.0) H 12/09/23 10:50
Vital Signs
Vital Signs
Temp Pulse Resp BP Pulse Ox
99 F 69 16 101/56 94
12/10/23 02:16 12/10/23 02:16 12/10/23 02:16 12/09/23 23:41 12/10/23 02:16
CT Intake/Output/Weight
12/09/23 12/09/23 12/10/23
06:59 18:59 06:59
Intake Total 575.5 / 1518.7 943.2 / 1518.7
Output Total 650 / 1085 435 / 1085
Balance -74.5 / 433.7 508.2 / 433.7
SaO2: 94 (2L)
Physical Exam
-
General: Awake, Oriented and AOx3
Cardiovascular: Regular rate & rhythm, No Murmurs and No Rub
Respiratory: Decreased Breath Sounds (at bases, otherwise clear)
Sternum: Stable
Incision: Clean, Dry, Intact and Dressing Intact
Extremities: Other (+trace edema)
Data Reviewed
-
Lab Results: Results Reviewed
Medications: Active Meds Reviewed
Chest X-Ray: Report Reviewed and Image Reviewed
ECG: Report Reviewed and Image Reviewed
--- NOTE | 2023-12-10 04:33 | PTCARENOTE ---
EKG done and shown to PA. PA with alb results. CI done and is 3.37. MVO2 72. Orders given to deline pt.
[2023-12-10 05:08] LABS: Glucose - Point of Care 103 mg/dl (70-99)
[2023-12-10] MEDS: ROXICODONE 5 MG PO ×3 (05:40→19:56)
[2023-12-10] MEDS: TYLENOL 1000 MG PO ×3 (05:40→22:31)
[2023-12-10] MEDS: MYLICON 80 MG PO (05:44)
[2023-12-10] MEDS: DILAUDID 0.25 MG IV ×2 (06:20→15:45)
[2023-12-10 06:28] LABS: Glucose - Point of Care 101 mg/dl (70-99)
--- NOTE | 2023-12-10 06:48 | PTCARENOTE ---
Pt helped to sitting then standing position. Weighed on standing scale then helped to chair. C/O 7/10 sternal pain. Dilaudid 0.25 mg IV x 1 for c/o pain. Raquel was d/c'ed at 0605.
[2023-12-10 07:59] LABS: Glucose - Point of Care 104 mg/dl (70-99)
--- NOTE | 2023-12-10 08:08 | W.PN.ANS.POP ---
Anesthesia Post Operative
- Anesthesia Post Op Note
Vital Signs Stable-See Nursing Note: Yes
Airway Patent: Yes
Adequate Pain Control: Yes
Change in Mental Status: No
Current Postoperative Nausea & Vomiting: No
Anesthesia Complications: No
General Anesthetic Recall: No
Unplanned Admission: No
Post Op Hydration Adequate: Yes
[2023-12-10] MEDS: LIDOCAINE 4% PATCH 1 PATCH TOPICAL (08:10)
[2023-12-10] MEDS: SENOKOT-S 1 TABLET PO ×2 (08:10→19:56)
[2023-12-10] MEDS: LOW STRENGTH ASPIRIN 81 MG PO (08:10)
[2023-12-10] MEDS: VITAMIN C 500 MG PO (08:10)
[2023-12-10] MEDS: PROTONIX 40 MG PO (08:10)
[2023-12-10] MEDS: BACTROBAN 2% OINTMENT 1 APPLIC NASAL ×2 (08:11→19:55)
[2023-12-10] MEDS: PACERONE 200 MG PO ×3 (08:11→19:56)
[2023-12-10] MEDS: MAGNESIUM OXIDE 500 MG PO ×2 (08:11→19:55)
[2023-12-10] MEDS: NEURONTIN 100 MG PO ×3 (08:11→22:31)
[2023-12-10] MEDS: NSS IV (08:18)
[2023-12-10] MEDS: VITAMIN D3 (cholecalciferol) 125 MCG PO (08:18)
--- NOTE | 2023-12-10 08:21 | W.PN.INTV ---
Today's Communication / Plan
Recommendations
Up OOB as tolerated
Pain control
Encourage incentive spirometer use
Removal of mediastinal chest tubes as per CT surgery team
Goal BG 140�180
Goal SpO2 >90-94%
Patient is now downgraded to CVICU�telemetry status. [employer]/Pulmonary service will now sign off. Please reconsult if there are any additional questions/concerns, or if patient's respiratory status deteriorates.
Assessment
-
Assessment: 63-year-old male non-smoker with a past medical history of moderate-severe aortic valve stenosis with history of LBBB, hypertension, hyperlipidemia and chronic HFrEF who presents with surgical aortic valve replacement. Patient known to
cardiothoracic surgery with last visit on 11/09/[address] Mathews. Patient had an echo done on 09/13/2023 showing severe aortic stenosis with mild aortic insufficiency, with peak/mean gradients of 61/35 mm, respectively. His LVEF was reduced at 40%
with no regional WMA. His EF was previously 52% on prior echo from December 2022. Left + right heart cath in August 2022 showed nonobstructive CAD with moderate aortic stenosis with transaortic mean gradient at that time of 30 mmHg. Surgical aortic
valve replacement was discussed, and a CT TAVR was performed on 11/03/2023 showing minimal bronchiectasis in the right lower lobe with dependent atelectasis bilaterally. Today he underwent surgical aortic valve replacement with a 27 mm
bioprosthesis, and also underwent left atrial appendage exclusion with a 35mm clip. There were no immediate complications and he was transferred to the CVICU postoperatively for further care. [employer] services consulted for additional
management/recommendations.
Chronic conditions APPRAISER: Lactose intolerance, hypertension, hyperlipidemia, moderate-severe aortic stenosis, cardiomyopathy/HFrEF, history of LBBB
Impression:
#Severe aortic valve stenosis with moderate aortic insufficiency s/p surgical aortic valve replacement with 27 mm bioprosthesis + WENDI�exclusion with 35mm clip (POD #1)
#Chronic HFrEF/NICM
#Hyperlipidemia
#Hypertension
#History of LBBB
Plan:
Patient was successfully extubated to nasal cannula on 12/09/2023. He is now on room air breathing comfortably
Maintain SpO2 >90-94%
prn nebulized bronchodilators
Encourage incentive spirometer use
Removal of R-IJ cordis as per CT surgery team
Maintain MAP>65
Replete electrolytes with K>4, Mg>2
Monitor chest tube output (mediastinal chest tubes x2)
Monitor hemoglobin
Monitor platelet count and coags
Transfuse blood products as needed to maintain Hb>7g/dL, plt>50k (given post-operative status)
CT surgery managing chest tubes
Monitor blood sugar to maintain euglycemia with goal BG 140-180
Insulin drip now off
Aspiration precautions
DVT prophylaxis
Early nutrition
Early mobilization
Patient is now downgraded to CVICU�telemetry status. [employer]/Pulmonary service will now sign off. Thank you for allowing us to be involved in the care of this patient. Please reconsult if there are any additional questions/concerns, or if
patient's respiratory status deteriorates.
Total time spent today was 57 minutes for this encounter. Time includes reviewing laboratory test/imaging results, reviewing pertinent medical records, obtaining and reviewing medical history, performing an appropriate exam, ordering medications,
tests and procedures. Time also includes documentation of this encounter, coordinating patient care and communicating with other healthcare professionals. Total time does not include separately billed tests performed on this date of service.
Subjective Dataa
Subjective Data
Date of Service:
Date of Service: December 10, 2023
Chief Complaint: [employer] Follow Up
Subjective:
Patient was seen and evaluated today at bedside. Has soreness in his chest but no shortness of breath, VELEZ, nausea, fevers or chills reported. Currently heart rate 68, BP 106/67. R�IJ cordis in place. Mediastinal chest tubes x [address]
Review of Systems
General: Other (Negative unless mentioned above)
Objective Data
Data Reviewed
Vital Signs / I&O / Oxygen:
Vital Signs
Temp Pulse Resp BP Pulse Ox
98.5 F 66 18 106/64 98
12/10/23 04:25 12/10/23 08:00 12/10/23 08:00 12/10/23 08:00 12/10/23 08:30
Intake and Output
12/09/23 12/10/23 12/11/23
06:59 06:59 06:59
Intake Total 1582.7 / 1582.7 11.3 / 11.3
Output Total 1295 / 1295
Balance 287.7 / 287.7 -8.7 / -8.7
SaO2 [CPAP] 98
SaO2 [SIMV] 99
SaO2 98
Nasal Cannula flow liters per 3
minute
Physical Exam
General: Respiratory Distress (negative), Comfortable, Chills (negative) and Sweats (negative)
HEENT: Normocephalic and Anicteric
Cardiovascular: S1-S2 and Peripheral Edema (negative)
Respiratory: Clear, Wheeze (negative), Crackles (negative), Rhonchi (negative), Accessory Resp Muscle Use (negative), Stridor (negative) and Chest Tube (Mediastinal chest tubes x 2)
GI: Soft, Non Distended, Non Tender and Normal Bowel Sounds
Neurology: AO x 3 and Tremors (negative)
Skin: Warm, Dry, Cyanosis (negative) and Jaundice (negative)
Labs/Micro/Reports
Lab Data
12/10/23 02:35
12/10/23 02:35
Laboratory Results
12/09/23 12/09/23 12/09/23
10:50 15:00 15:53
PT 18.6 H
INR 1.57
APTT 37.5 H
pH 7.36 Cancelled 7.47 H
pCO2 42 Cancelled 32 L
pO2 118 H Cancelled 180 H
HCO3 23.7 Cancelled 23.3
O2 Delivery Level Cancelled
12/10/23
02:35
PT 15.6 H
INR 1.26
APTT
pH
pCO2
pO2
HCO3
O2 Delivery Level
--- NOTE | 2023-12-10 08:45 | PTCARENOTE ---
Assumed care of patient at 0700. Pt is awake, alert, and oriented. No complaints of pain at this time. Pt remains SR with LBBB, and PVCs, HR 60's. BP 106/64 MAP 76. Epicardial V wire remains in place set to 40/10/2. Pulse oximetry 98% on room air.
Pt utilizing IS, continued use encouraged. Mediastinal chest tubes x2 in place draining serosanguineous drainage. No sign of air leak or crepitus. Bowel sounds hypoactive. Tolerated clear liquid diet. Pt is due to void. Midsternal incision
approximated and ZULEYKA. Right IJ cordis in place with KVO. Pt remains on insulin gtt per glycemic protocol. Pt currently OOB in chair with call horton within reach.
[2023-12-10 09:17] LABS: Glucose - Point of Care 104 mg/dl (70-99)
--- NOTE | 2023-12-10 10:27 | W.PN.CARDCBS ---
Today's Communication / Plan
-
continue post op care
follow on tele. in SR
Impression / Plan
-
Primary Referral And Information Aide: Dr. Kwan
Assessment:
Severe s/p bioprosthetic AVR, WENDI clip
NICM, EF 40%, EF improved to 55% by post op KARUNA
HTN
HLD
LBBB, chronic
History of inguinal hernia repair
ECHO 09/13/23: EF 40%, mild concentric LVH, stage I diastolic dysfunction, mild AR, severe with peak/mean gradient 61/35 mmHg, PHYLLIS 0.7 cm�
Plan:
-s/p bioprosthetic AVR, WENDI clip 12/09/23
-EF was noted to improved by post op KARUNA to 55% off pressors
-doing well. off pressors
-in SR with chronic LBBB, occasional PVCs on review of tele. continue amio/BB
-hgb 12.1
-continue post op care, OOB/IS
-was on toprol, entresto, farxiga prior to admission for NICM
-d/w nursing
Progress Note - Referral And Information Aide
Subjective
Date of Service: December 10, 2023
Reports some postoperative pain and pleuritic discomfort with deep breathing
Objective
Labs:
12/10/23 02:35
12/10/23 02:35
Labs
Hgb 12.1 g/dL (13.0-18.0) L 12/10/23 02:35
Hct 34.3 % (39.0-52.0) L 12/10/23 02:35
Plt Count 147 10^3/uL (130-400) 12/10/23 02:35
PT 15.6 Sec (11.4-14.6) H 12/10/23 02:35
INR 1.26 12/10/23 02:35
APTT 37.5 Sec (23.4-35.0) H 12/09/23 10:50
Sodium 142 mmol/L (135-145) 12/10/23 02:35
Potassium 4.2 mmol/L (3.5-5.1) 12/10/23 02:35
BUN 23 mg/dl (9-20) H 12/10/23 02:35
Creatinine 0.9 mg/dL (0.7-1.3) 12/10/23 02:35
Glucose 89 mg/dl (70-99) 12/10/23 02:35
Vital Signs and I&O:
Vital Signs
Temp Pulse Resp BP Pulse Ox
98.5 F 78 24 104/65 94
12/10/23 04:25 12/10/23 10:00 12/10/23 10:00 12/10/23 10:00 12/10/23 09:15
Vital Signs
Temp Pulse Resp BP Pulse Ox
98.5 F 78 24 104/65 94
12/10/23 04:25 12/10/23 10:00 12/10/23 10:00 12/10/23 10:00 12/10/23 09:15
Intake & Output
12/08/23 12/09/23 12/10/23 12/11/23
07:59 07:59 07:59 07:59
Intake Total 1582.7 / 1594.0 11.3 / 11.3
Output Total 1295 / 1315
Balance 287.7 / 279.0 -8.7 / -8.7
Physical Exam
Physical Exam
GEN: No distress, awake, alert, oriented x3. Sitting in chair
HEENT: supple, anicteric, mmm, EOMI
LUNGS: CTA bilaterally, no wheezes/rales
CV: Reg, S1/S2, no murmur
ABD: soft, BS+, NT/ND
EXT: No cyanosis, clubbing, edema
NEURO: Gross non-focal
SKIN: Warm, pink, dry. No rash. Sternotomy incision c/d/i. CT in place
[2023-12-10 11:17] LABS: Glucose - Point of Care 121 mg/dl (70-99)
[2023-12-10 12:00] LABS: Glucose - Point of Care 110 mg/dl (70-99)
[2023-12-10] MEDS: FLEXERIL 5 MG PO ×2 (12:04→22:31)
--- NOTE | 2023-12-10 12:51 | PTCARENOTE ---
Pt ambulated in hallway with RN assistance without issue. Pt remains SR with HR 60's. BP 106/67 MAP 78. Pulse oximetry 95% on room air. Insulin gtt now d/c'd per order.
[2023-12-10] MEDS: FERRLECIT 110 MG IV (14:59)
--- NOTE | 2023-12-10 15:40 | PTCARENOTE ---
Pt ambulated to bathroom with RN assist. Able to void in urinal without issue. Pt remains SR with LBBB and PVC's. HR 70's-90's. BP 112/60 MAP 75. Pulse oximetry 96% on room air. Pt with continued complaints of sternal pain, PRN pain medications
administered. Pt sitting OOB in chair eating lunch, tolerating well.
--- NOTE | 2023-12-10 19:30 | PTCARENOTE ---
Report received from ZENOBIA Alvarez. Walking rounds done. Pt sitting in recliner chair. VS done. Pt helped to BR to void in toilet, clear, yellow urine. Attempted BM without success. Passing some flatus. Pt awake, alert, oriented x 4. Speech clear.
Moves all extremities with equal strength. Pt on room air in chair. Sats 94%. Pt helped back to bed after trip to BR. 2L/NC applied. Sats 97% on 2L/NC. BBS present. Posterior bases with inspiratory rales at bases. CDB and IS encouraged. IS Peak
1500 mls. Audible heart tones. + pericardial rub heard. Pt in SR with LBBB and PVCs, frequent at times. Additional Amiodarone 200 mg given per order of PA. For pulse and wound assessments, see flowsheets. Mediastinal CTs x 2 to -20 cm suction,
sanguinous drainage. V wire attached to temporary PM, back up rate 40, mA 10, sensitivity 2. Belly soft, round nontender. Normoactive bowel sounds x 4. Voiding clear, yellow urine in toilet. and sister at bedside. Roxicodone 5 mg given for c/o
moderate sternal pain. Ongoing plan of care.
[2023-12-10] MEDS: CRESTOR 20 MG PO (22:30)
[2023-12-10] MEDS: ANESTHETIC LOZENGE 1 LOZENGE PO (22:57)
--- NOTE | 2023-12-10 23:00 | PTCARENOTE ---
VS done. Pt assisted with mouth care: pt brushed teeth and mouthwash given. Pt c/o sore throat, and tender area to gum to back of right side of mouth ( side of tongue). Site inspected with some redness noted. No open wound seen. Notified PA.
Cepacol lozenge ordered and given at 2257. Pt also given Flexeril 5 mg at 2230 for c/o moderate sternal pain. VS done and recorded. See flowsheet. Ongoing plan of care.
[2023-12-11] VITALS (11 sets, daily range): BP systolic 93–129; BP diastolic 50–83; BMI 31.1
[2023-12-11] MEDS: PACERONE 200 MG PO ×3 (03:32→15:06)
[2023-12-11] MEDS: DILAUDID 0.25 MG IV (03:32)
--- NOTE | 2023-12-11 03:35 | PTCARENOTE ---
VS done. Pt c/o 09/23 sternal pain. Dilaudid 0.25 mg IV given for pain. Sats 92-93% on 2L/NC. O2 increased to 3L/NC. CDB and IS done with pt. Pt expectorated moderate amount of landaverde-clear sputum, thick. Sats 95% on 3L/NC. Amiodarone 200 mg given as
scheduled at 0400. Pt with increased frequency of PVCs, bigeminy at times. BP 97/50. PA aware. Labs drawn and sent.
--- NOTE | 2023-12-11 04:19 | W.PN.CT ---
Addendum entered and electronically signed by Osman Prescott MD 12/11/23 09:14:
I saw and examined the patient.
The PA's note was reviewed and I agree with the note.
Comment:
POD#2 s/p AVR/ELAA
- D/C CTs
- Maintain cordis
- Continue amiodarone, hold BB for now
- OOB/IS/ambulate
Original Note:
Today's Communication / Plan
-
Plan:
-No major issues overnight. Hemodynamically and neurologically intact
-Off all drips
-BP has been soft postop, improving BB was held yesterday, will resume given frequent PVC's
-Will replete ca++ to help with BP
-Cont. current meds (ASA, Amiodarone, Crestor, Toprol XL)
-Consider D/C of chest tubes: 2meds 55/155
-Maintain cordis another day
-Maintain temporary PW (will pull likely tomorrow instead of today given frequent ectopies)
-Wean off of O2 as tolerated
-Encourage use of IS
-OOB into chair/Ambulate
Assessment / Plan
-
Assessment:
-S/P Sternotomy with standard aortic and right atrial cannulation/Surgical aortic valve replacement [27 mm bioprosthesis]/Left atrial appendage exclusion [35 mm clip], by Dr. Mathews, 12/09/23, pod#2
-Severe aortic valve stenosis with moderate degree of insufficiency, mixed pathology
-Non ischemic Cardiomyopathy, Chronic Systolic and Diastolic Dysfunction with Moderately reduced left ventricular ejection fraction likely secondary to valvular pathology
-LVEF 35-40% preop, improved to 50-55% postop per intraop KARUNA
-Hyperlipidemia
-Hypertension
-Class 1 obesity (BMI 29.4)
-Prediabetes (hgb A1C 5.7)
-S/p Removal of back sebaceous cyst
-S/p R Inguinal herniorrhaphy
-Acute postop blood loss/Anemia (stable without blood transfusion)
-Acute postop thrombocytopenia (stable without blood transfusion)
-Acute postop atelectasis
-Acute postop hypovolemia with subsequent hypervolemia
-Acute postop frequent PVC's
Discussed patient care with: Cardiology, Nursing, Respiratory Therapy, Pharmacy and Care Team
Subjective
Procedure
S/P Sternotomy with standard aortic and right atrial cannulation/Surgical aortic valve replacement [27 mm bioprosthesis]/Left atrial appendage exclusion [35 mm clip], by Dr. Mathews, 12/09/23
-
Date of Service: December 11, 2023
Pt c/o mild incisional pain and sore throat, otherwise feels well. Cepacol lozenges ordered
Objective Data
-
PT 15.6 Sec (11.4-14.6) H 12/10/23 02:35
INR 1.26 12/10/23 02:35
APTT 37.5 Sec (23.4-35.0) H 12/09/23 10:50
Vital Signs
Vital Signs
Temp Pulse Resp BP Pulse Ox
99.3 F 78 16 97/50 95
12/11/23 03:21 12/11/23 03:32 12/11/23 03:21 12/11/23 03:32 12/11/23 03:21
CT Intake/Output/Weight
12/10/23 12/10/23 12/11/23
06:59 18:59 06:59
Intake Total 1007.2 / 1582.7 216.2 / 506.2 290 / 506.2
Output Total 645 / 1295 400 / 455 55 / 455
Balance 362.2 / 287.7 -183.8 / 51.2 235 / 51.2
SaO2: 95 (2)
Physical Exam
-
General: Awake, Oriented and AOx3
Cardiovascular: Regular rate & rhythm, No Murmurs, No Rub and No Gallop
Respiratory: Decreased Breath Sounds (at bases, otherwise clear)
Sternum: Stable
Incision: Clean, Dry, Intact and Dressing Intact
Extremities: Other (+trace edema)
Data Reviewed
-
Lab Results: Results Reviewed
Medications: Active Meds Reviewed
Chest X-Ray: Report Reviewed and Image Reviewed
ECG: Report Reviewed and Image Reviewed
[2023-12-11 04:45] LABS: Blood Urea Nitrogen 23 mg/dl (9-20); Calcium 8.3 mg/dl (8.4-10.2); Carbon Dioxide 28 mmol/L (22-30); Chloride 100 mmol/L (98-107); Estimated Creatinine Clearance 104 ml/min; Glucose 128 mg/dl (70-99); Magnesium 1.9 mg/dl (1.6-2.3); Potassium 4.3 mmol/L (3.5-5.1); Sodium 135 mmol/L (135-145); eGFR > 60.00
[2023-12-11 04:49] LABS: Hematocrit 33.2 % (39.0-52.0); Hemoglobin 11.4 g/dL (13.0-18.0); Mean Corp Hgb Conc. 34.3 g/dL (33.0-37.0); Mean Corpuscular Hgb 29.5 pg (27.0-31.0); Mean Platelet Volume 10.5 fL (7.4-10.4); Platelet Count 118 10^3/uL (130-400); Red Blood Cell Count 3.86 10^6/uL (4.70-6.10); White Blood Cell Count 11.3 10^3/uL (4.8-10.8)
[2023-12-11] MEDS: TYLENOL 1000 MG PO ×3 (05:44→19:14)
[2023-12-11] MEDS: CALCIUM GLUCONATE 100 IV ×2 (05:45→07:51)
--- NOTE | 2023-12-11 08:00 | PTCARENOTE ---
Assumed care of patient from shift stacker RN. AAO x 3. C/o minor chest/sternum discomfort. SR BBB w/ PVC's on monitor. Epicardial wire to back up 40. No pacing noted at present. 2L 98%. IS to 1500. Chest tubes x 2 to -20 cm suction. No air
leak or crepitus noted. Abdomen soft and non tender, appetite good. Passing flatus and voiding spontaneously. Surgical incision well approximated. Pulses palpable. Plan for day discussed.
[2023-12-11] MEDS: ANESTHETIC LOZENGE 1 LOZENGE PO (08:03)
[2023-12-11] MEDS: PROTONIX 40 MG PO (08:03)
[2023-12-11] MEDS: SENOKOT-S 1 TABLET PO ×2 (08:04→20:30)
[2023-12-11] MEDS: BACTROBAN 2% OINTMENT 1 APPLIC NASAL ×2 (08:04→20:30)
[2023-12-11] MEDS: NEURONTIN 100 MG PO ×2 (08:04→14:45)
[2023-12-11] MEDS: VITAMIN C 500 MG PO (08:04)
[2023-12-11] MEDS: LIDOCAINE 4% PATCH 1 PATCH TOPICAL (08:04)
[2023-12-11] MEDS: MAGNESIUM OXIDE 500 MG PO ×2 (08:04→20:30)
[2023-12-11] MEDS: LOW STRENGTH ASPIRIN 81 MG PO (08:04)
[2023-12-11] MEDS: VITAMIN D3 (cholecalciferol) 125 MCG PO (08:04)
[2023-12-11] MEDS: NSS IV (08:05)
[2023-12-11] MEDS: TOPROL XL PO (09:40)
--- NOTE | 2023-12-11 11:28 | PTCARENOTE ---
Chest tubes removed as per MD order. Pt tolerated w/o issue. Ambulated with RN post. VSS. Assessment unchanged from prior.
[2023-12-11] MEDS: FERRLECIT 110 MG IV (13:26)
[2023-12-11] MEDS: TOPROL XL 12.5 MG PO (14:44)
--- NOTE | 2023-12-11 15:08 | PTCARENOTE ---
HR elevated with increased ectopy. Rate 90-100's while sitting. BP 106/73. Discussed with CT PA, orders obtained. Amio and Metoprolol administered. Will monitor,
[2023-12-11] MEDS: CORDARONE 103 MG IV (20:12)
--- NOTE | 2023-12-11 20:30 | PTCARENOTE ---
Report received from ZENOBIA Joshua. Walking rounds done. Pt in recliner chair. Awake, alert, oriented x 4. Speech clear. Moves all extremities equally. Pt on room air. Sats 94%. BBS present. Decreased to B bases. Moist cough at times, productive of
thick, landaverde, moderate amount of sputum. CDB and IS encouraged. IS peak 1500 mls. Pt in SR with LBBB and 1st degree AVB. Amiodarone bolus 150 mg IV ordered and given by protocol through RI cordis. Audible heart tones. V wire insulated to chest.
Temporary PM at bedside. For pulse and wound assessments, see flowsheets. Belly soft, round, nontender. Normoactive bowel sounds x 4. Passing flatus. No BM yet. Voids clear, yellow urine without difficulty into toilet. at bedside. PA in to see
pt. Roxicodone 5 mg given at 2034. See MAR. Ongoing plan of care.
[2023-12-11] MEDS: ROXICODONE 5 MG PO (20:35)
[2023-12-12] VITALS (13 sets, daily range): BP systolic 94–132; BP diastolic 58–85; PULSE 84; O2SAT 95–98; BMI 31.1
[2023-12-12] MEDS: NEURONTIN 100 MG PO ×4 (00:16→22:07)
[2023-12-12] MEDS: PACERONE 200 MG PO ×4 (00:16→22:07)
[2023-12-12] MEDS: CRESTOR 20 MG PO ×2 (00:16→22:07)
--- NOTE | 2023-12-12 00:30 | PTCARENOTE ---
Scheduled meds given. Pt helped to BR to voids clear, yellow urine in toilet. Pt helped back to bed. CHG bath given. New gown provided. Pt going back to sleep.
--- NOTE | 2023-12-12 04:43 | W.PN.CT ---
Today's Communication / Plan
-
Plan:
-No major issues overnight. Hemodynamically and neurologically intact
-BP has been soft postop, improving, now tolerating Toprol XL 12.5 BID. Required Amiodarone bolus x 1 d/t frequent PVC's - improved
-Cont. current meds (ASA, Amiodarone, Crestor, Toprol XL)
-Monitor acute postop hyponatremia, 134. Will benefit from gentle diuresis if BP permits. Fluid restriction
-D/C cordis
-Will discuss d/c of temporary PW vs keeping another day in light of postop ectopies
-Wean off of O2 as tolerated
-Encourage use of IS
-OOB into chair/Ambulate
-Likely d/c home in 1-2 days
Assessment / Plan
-
Assessment:
-S/P Sternotomy with standard aortic and right atrial cannulation/Surgical aortic valve replacement [27 mm bioprosthesis]/Left atrial appendage exclusion [35 mm clip], by Dr. Mathews, 12/09/23, pod#3
-Severe aortic valve stenosis with moderate degree of insufficiency, mixed pathology
-Non ischemic Cardiomyopathy, Chronic Systolic and Diastolic Dysfunction with Moderately reduced left ventricular ejection fraction likely secondary to valvular pathology
-LVEF 35-40% preop, improved to 50-55% postop per intraop KARUNA
-Hyperlipidemia
-Hypertension
-Class 1 obesity (BMI 29.4)
-Prediabetes (hgb A1C 5.7)
-S/p Removal of back sebaceous cyst
-S/p R Inguinal herniorrhaphy
-Acute postop blood loss/Anemia (stable without blood transfusion)
-Acute postop thrombocytopenia (stable without blood transfusion)
-Acute postop atelectasis
-Acute postop hypovolemia with subsequent hypervolemia
-Acute postop frequent PVC's
-Acute postop hyponatremia, 134
Discussed patient care with: Cardiology, Nursing, Respiratory Therapy, Pharmacy and Care Team
Subjective
Procedure
S/P Sternotomy with standard aortic and right atrial cannulation/Surgical aortic valve replacement [27 mm bioprosthesis]/Left atrial appendage exclusion [35 mm clip], by Dr. Mathews, 12/09/23
-
Date of Service: December 12, 2023
Pt c/o mild incisional pain, otherwise feels well
Objective Data
-
PT 15.6 Sec (11.4-14.6) H 12/10/23 02:35
INR 1.26 12/10/23 02:35
APTT 37.5 Sec (23.4-35.0) H 12/09/23 10:50
Vital Signs
Vital Signs
Temp Pulse Resp BP Pulse Ox
98.9 F 75 18 112/67 98
12/12/23 00:12 12/12/23 01:00 12/12/23 00:12 12/12/23 00:16 12/12/23 00:12
CT Intake/Output/Weight
12/11/23 12/11/23 12/12/23
06:59 18:59 06:59
Intake Total 420 / 636.2 1010 / 1170 160 / 1170
Output Total 510 / 910
Balance -90 / -273.8 1000 / 1160 160 / 1160
SaO2: 98 (2L)
Physical Exam
-
General: Awake, Oriented and AOx3
Cardiovascular: Regular rate & rhythm, No Murmurs, No Rub and No Gallop
Respiratory: Decreased Breath Sounds (at bases, otherwise clear )
Sternum: Stable
Incision: Clean, Dry, Intact and Dressing Intact
Extremities: Other (+trace edema)
Data Reviewed
-
Lab Results: Results Reviewed
Medications: Active Meds Reviewed
Chest X-Ray: Report Reviewed and Image Reviewed
ECG: Report Reviewed and Image Reviewed
[2023-12-12] MEDS: TYLENOL 1000 MG PO ×3 (05:03→22:07)
[2023-12-12] MEDS: ROXICODONE 5 MG PO (05:04)
--- NOTE | 2023-12-12 05:07 | PTCARENOTE ---
Labs drawn and sent. VS done. Roxicodone 5 mg given with Tylenol for moderate R shoulder pain. Pt going back to sleep.
[2023-12-12 05:31] LABS: Hematocrit 31.5 % (39.0-52.0); Hemoglobin 11.1 g/dL (13.0-18.0); Mean Corp Hgb Conc. 35.2 g/dL (33.0-37.0); Mean Corpuscular Volume 85.1 fL (80.0-94.0); Mean Platelet Volume 11.1 fL (7.4-10.4); Platelet Count 109 10^3/uL (130-400); Red Cell Dist. Width 12.6 % (11.5-14.5); White Blood Cell Count 8.7 10^3/uL (4.8-10.8)
[2023-12-12 05:47] LABS: Blood Urea Nitrogen 15 mg/dl (9-20); Calcium 8.4 mg/dl (8.4-10.2); Carbon Dioxide 31 mmol/L (22-30); Chloride 99 mmol/L (98-107); Estimated Creatinine Clearance 120 ml/min; Glucose 104 mg/dl (70-99); Magnesium 1.9 mg/dl (1.6-2.3); Sodium 134 mmol/L (135-145); eGFR > 60.00
--- NOTE | 2023-12-12 06:15 | PTCARENOTE ---
Pt helped to recliner chair per request.
[2023-12-12] MEDS: SENOKOT-S 1 TABLET PO ×2 (09:14→19:42)
[2023-12-12] MEDS: TOPROL XL 12.5 MG PO (09:14)
[2023-12-12] MEDS: LASIX 20 MG IV ×2 (09:14→12:05)
[2023-12-12] MEDS: VITAMIN D3 (cholecalciferol) 125 MCG PO (09:14)
[2023-12-12] MEDS: PROTONIX 40 MG PO (09:14)
[2023-12-12] MEDS: MAGNESIUM OXIDE 500 MG PO ×2 (09:14→19:42)
[2023-12-12] MEDS: KCL 20 MEQ PO (09:14)
[2023-12-12] MEDS: LOW STRENGTH ASPIRIN 81 MG PO (09:15)
[2023-12-12] MEDS: VITAMIN C 500 MG PO (09:15)
[2023-12-12] MEDS: BACTROBAN 2% OINTMENT 1 APPLIC NASAL ×2 (09:15→19:46)
[2023-12-12] MEDS: LIDOCAINE 4% PATCH TOPICAL (09:21)
[2023-12-12] MEDS: FLEXERIL 5 MG PO (09:25)
--- NOTE | 2023-12-12 09:38 | PTCARENOTE ---
assumed care of pt from previous shift RN, sinus rhythm on tele w 1st degree HB and BBB, BP 129/82, Lungs diminished, pox 98% on RA. +bs, tolerating PO intake, voids spontaneously, adequate. Sternal incision w surgical adhesive intact, right IJ
cordis w KVO, PIV flushes easily. Plan of care reviewed w the pt and questions encouraged.
--- NOTE | 2023-12-12 10:41 | W.PN.CARDCBS ---
Today's Communication / Plan
-
Stable cardiology status
Impression / Plan
-
Primary Machine Erector: Dr. Kwan
Assessment:
Severe s/p bioprosthetic AVR, WENDI clip
NICM, EF 40%, EF improved to 55% by post op KARUNA
HTN
HLD
LBBB, chronic
History of inguinal hernia repair
ECHO 09/13/23: EF 40%, mild concentric LVH, stage I diastolic dysfunction, mild AR, severe with peak/mean gradient 61/35 mmHg, PHYLLIS 0.7 cm�
Plan:
Stable cardiology status
Remains in sinus rhythm
Discussed with CT surgery PA
Progress Note - Machine Erector
Subjective
Date of Service: December 12, 2023
No complaints
Objective
Labs:
12/12/23 04:59
12/12/23 04:59
Labs
Hgb 11.1 g/dL (13.0-18.0) L 12/12/23 04:59
Hct 31.5 % (39.0-52.0) L 12/12/23 04:59
Plt Count 109 10^3/uL (130-400) L 12/12/23 04:59
PT 15.6 Sec (11.4-14.6) H 12/10/23 02:35
INR 1.26 12/10/23 02:35
APTT 37.5 Sec (23.4-35.0) H 12/09/23 10:50
Sodium 134 mmol/L (135-145) L 12/12/23 04:59
Potassium 4.0 mmol/L (3.5-5.1) 12/12/23 04:59
BUN 15 mg/dl (9-20) 12/12/23 04:59
Creatinine 0.7 mg/dL (0.7-1.3) 12/12/23 04:59
Glucose 104 mg/dl (70-99) H 12/12/23 04:59
Vital Signs and I&O:
Vital Signs
Temp Pulse Resp BP Pulse Ox
98.2 F 81 16 129/82 98
12/12/23 09:12 12/12/23 09:12 12/12/23 09:12 12/12/23 09:12 12/12/23 09:54
Vital Signs
Temp Pulse Resp BP Pulse Ox
98.2 F 81 16 129/82 98
12/12/23 09:12 12/12/23 09:12 12/12/23 09:12 12/12/23 09:12 12/12/23 09:54
Intake & Output
12/10/23 12/11/23 12/12/23 12/13/23
06:59 06:59 06:59 06:59
Intake Total 1582.7 / 1582.7 636.2 / 636.2 1230 / 1230 110 / 110
Output Total 1295 / 1295 910 / 910
Balance 287.7 / 287.7 -273.8 / -273.8 1220 / 1220 110 / 110
Physical Exam
Physical Exam
General: Well developed, well nourished in NAD.
Neck: Supple, no JVD, HJR, carotids +2 B/L, no bruits bilaterally.
Heart: Non displaced PMI, RRR, no murmurs, No S3, S4, no rubs.
Lungs: Scattered rhonchi
Sternal dressings noted
Extremities: No clubbing, cyanosis or edema bilaterally.
Neuro: Grossly nonfocal, awake, alert and oriented x3.
[2023-12-12 10:49] LABS: ACT+ - POC > 1003 Seconds (82-134)
[2023-12-12 10:49] LABS: ACT+ - POC > 1003 Seconds (82-134)
[2023-12-12 10:49] LABS: ACT+ - POC > 1003 Seconds (82-134)
--- NOTE | 2023-12-12 11:27 | CM ---
Chart reviewed. Patient is independent of ADLS, lives with his in a [address], 0 [facility], 0 DME. Plan is for the patient to return home with CT Transitional RN. CM to follow
[2023-12-12] MEDS: FARXIGA 10 MG PO (12:05)
[2023-12-12] MEDS: NSS 500 IV (12:09)
--- NOTE | 2023-12-12 12:46 | PTCARENOTE ---
sinus rhythm maintained on tele, tolerated cardiac rehab, pain is well controlled.
[2023-12-12] MEDS: FERRLECIT 110 MG IV (13:57)
--- NOTE | 2023-12-12 16:34 | PTCARENOTE ---
VSS, sinus rhythm maintained. Tolerating ambulating in hallway, pain well controlled.
[2023-12-12] MEDS: TOPROL XL 25 MG PO (19:45)
--- NOTE | 2023-12-12 20:20 | PTCARENOTE ---
Assumed care of patient at 1900. Patient found oob in chair at time of assessment. Patient is AOx4, follows commands appropriately, moves all extremities. Lung sounds are clear and equal bilaterally. IS at 1000. saO2 at 95% on RA. Heart sounds are
audible, patient is SR with first deg AV block and BBB on the monitor, pulses are palpable, no observable edema. V wires are present and insulated. Patient has active BS in all four quadrants and patient is voiding in the bathroom. There is a
sternal incision approx with surg adhesive ZULEYKA. There is an ABD dressing over CT wounds that is CDI. Patient has a R IJ cordis receiving KVO and R FA PIV. No c/o pain at this time. VSS.
[2023-12-13] VITALS (8 sets, daily range): BP systolic 101–142; BP diastolic 67–85; PULSE 100; O2SAT 85–95; BMI 30.6
--- NOTE | 2023-12-13 | PTCARENOTE ---
Patient reassessed. VSS. Remains SR on the monitor with first deg AV block and BBB.
[2023-12-13 03:48] LABS: Ionized Calcium 1.17 mMOL/L (1.15-1.33)
[2023-12-13 03:54] LABS: Hematocrit 33.2 % (39.0-52.0); Hemoglobin 11.7 g/dL (13.0-18.0); Mean Corp Hgb Conc. 35.2 g/dL (33.0-37.0); Mean Corpuscular Hgb 30.6 pg (27.0-31.0); Mean Corpuscular Volume 86.9 fL (80.0-94.0); Mean Platelet Volume 10.8 fL (7.4-10.4); Platelet Count 146 10^3/uL (130-400); Red Blood Cell Count 3.82 10^6/uL (4.70-6.10); Red Cell Dist. Width 12.6 % (11.5-14.5); White Blood Cell Count 8.6 10^3/uL (4.8-10.8)
--- NOTE | 2023-12-13 04:04 | W.PN.CT ---
Today's Communication / Plan
-
Plan:
-No major issues overnight. Hemodynamically and neurologically intact
-Soft BP postop improving, now tolerating Toprol XL 25mg PO BID-noted be a bit tachy with ambulation
-Cont. current meds (ASA, Amiodarone, Crestor, Toprol XL, Farxiga; will add Entresto when bp permits)
-Postop hyponatremia has resolved with diuresis and fluid restriction
-Will replete ca++
-Will cut temporary PW before d/c home
-D/C cordis
-F/U 2-view cxr
-Encourage use of IS
-OOB into chair/Ambulate
-Likely home tomorrow
Assessment / Plan
-
Assessment:
-S/P Sternotomy with standard aortic and right atrial cannulation/Surgical aortic valve replacement [27 mm bioprosthesis]/Left atrial appendage exclusion [35 mm clip], by Dr. Mathews, 12/09/23, pod#4
-Severe aortic valve stenosis with moderate degree of insufficiency, mixed pathology
-Non ischemic Cardiomyopathy, Chronic Systolic and Diastolic Dysfunction with Moderately reduced left ventricular ejection fraction likely secondary to valvular pathology
-LVEF 35-40% preop, improved to 50-55% postop per intraop KARUNA
-Hyperlipidemia
-Hypertension
-Class 1 obesity (BMI 29.4)
-Prediabetes (hgb A1C 5.7)
-S/p Removal of back sebaceous cyst
-S/p R Inguinal herniorrhaphy
-Acute postop blood loss/Anemia (stable without blood transfusion)
-Acute postop thrombocytopenia (stable without blood transfusion)
-Acute postop atelectasis
-Acute postop hypovolemia with subsequent hypervolemia
-Acute postop frequent PVC's
-Acute postop hyponatremia, 134
Discussed patient care with: Cardiology, Nursing, Respiratory Therapy, Pharmacy and Care Team
Subjective
Procedure
S/P Sternotomy with standard aortic and right atrial cannulation/Surgical aortic valve replacement [27 mm bioprosthesis]/Left atrial appendage exclusion [35 mm clip], by Dr. Mathews, 12/09/23
-
Date of Service: December 13, 2023
Pt c/o mild incisional pain, otherwise feels well
Objective Data
-
Lab Results
12/13/23 03:31
PT 15.6 Sec (11.4-14.6) H 12/10/23 02:35
INR 1.26 12/10/23 02:35
APTT 37.5 Sec (23.4-35.0) H 12/09/23 10:50
Vital Signs
Vital Signs
Temp Pulse Resp BP Pulse Ox
98.4 F 83 16 98/68 95
12/12/23 23:00 12/12/23 23:00 12/12/23 23:00 12/12/23 23:00 12/12/23 23:00
CT Intake/Output/Weight
12/12/23 12/12/23 12/13/23
06:59 18:59 06:59
Intake Total 220 / 1230 320 / 320
Output Total 400 / 400
Balance 220 / 1220 -80 / -80
SaO2: 95 (RA)
Physical Exam
-
General: Awake, Oriented and AOx3
Cardiovascular: Regular rate & rhythm, No Murmurs, No Rub and No Gallop
Respiratory: Decreased Breath Sounds (at bases, otherwise clear)
Sternum: Stable
Incision: Clean, Dry, Intact and Dressing Intact
Extremities: Other (+trace edema)
Data Reviewed
-
Lab Results: Results Reviewed
Medications: Active Meds Reviewed
Chest X-Ray: Report Reviewed and Image Reviewed
ECG: Report Reviewed and Image Reviewed
[2023-12-13 04:11] LABS: Blood Urea Nitrogen 18 mg/dl (9-20); Calcium 8.4 mg/dl (8.4-10.2); Carbon Dioxide 28 mmol/L (22-30); Chloride 97 mmol/L (98-107); Estimated Creatinine Clearance 105 ml/min; Glucose 82 mg/dl (70-99); Magnesium 2.1 mg/dl (1.6-2.3); Potassium 4.1 mmol/L (3.5-5.1); Sodium 137 mmol/L (135-145); eGFR > 60.00
[2023-12-13] MEDS: CALCIUM GLUCONATE 100 IV (06:07)
[2023-12-13] MEDS: TYLENOL 1000 MG PO ×2 (06:07→13:57)
--- NOTE | 2023-12-13 07:22 | PTCARENOTE ---
Patient reassessed. VSS. AM labs obtained. AM hygiene care provided. No c/o pain. Remains SR with 1st deg AV block and BBB.
--- NOTE | 2023-12-13 09:00 | PTCARENOTE ---
Patient received from assistant casino shift manager resting in bed, AAO X 3, states pain controlled at this time. NSR via cm, SaO2 @ 95% on RA. RIJ Cordis w/kvo infusing - d/c'd as ordered. Epicardial V-wire, insulated to chest wall - cut by LINWOOD Jackie w/alcon RN
assist. All procedural sites stable. Patient updated to plan of care for the day, including possible d/c home, in agreement. See work list for full assessment and interventions performed.
[2023-12-13] MEDS: FARXIGA 10 MG PO (09:21)
[2023-12-13] MEDS: SENOKOT-S 1 TABLET PO (09:21)
[2023-12-13] MEDS: BACTROBAN 2% OINTMENT 1 APPLIC NASAL (09:21)
[2023-12-13] MEDS: PROTONIX 40 MG PO (09:21)
[2023-12-13] MEDS: MAGNESIUM OXIDE 500 MG PO (09:21)
[2023-12-13] MEDS: NEURONTIN 100 MG PO (09:21)
[2023-12-13] MEDS: LASIX 40 MG IV (09:21)
[2023-12-13] MEDS: VITAMIN D3 (cholecalciferol) 125 MCG PO (09:22)
[2023-12-13] MEDS: PACERONE 200 MG PO (09:22)
[2023-12-13] MEDS: KCL 20 MEQ PO (09:22)
[2023-12-13] MEDS: LOW STRENGTH ASPIRIN 81 MG PO (09:22)
[2023-12-13] MEDS: TOPROL XL 25 MG PO ×2 (09:22→11:44)
[2023-12-13] MEDS: NSS IV (09:29)
[2023-12-13] MEDS: LIDOCAINE 4% PATCH TOPICAL (09:29)
--- NOTE | 2023-12-13 09:58 | W.PN.CARDCBS ---
Today's Communication / Plan
-
Stable cardiology status for discharge
Impression / Plan
-
Primary Pc Support Specialist: Dr. Kwan
Assessment:
Severe s/p bioprosthetic AVR, WENDI clip
NICM, EF 40%, EF improved to 55% by post op KARUNA
HTN
HLD
LBBB, chronic
History of inguinal hernia repair
ECHO 09/13/23: EF 40%, mild concentric LVH, stage I diastolic dysfunction, mild AR, severe with peak/mean gradient 61/35 mmHg, PHYLLIS 0.7 cm�
Plan:
Continues to do very well
Remains in sinus rhythm
Stable cardiology status for discharge
Discussed with CT surgery PA
Progress Note - Pc Support Specialist
Subjective
Date of Service: December 13, 2023
No complaints
Objective
Labs:
12/13/23 03:31
12/13/23 03:31
Labs
Hgb 11.7 g/dL (13.0-18.0) L 12/13/23 03:31
Hct 33.2 % (39.0-52.0) L 12/13/23 03:31
Plt Count 146 10^3/uL (130-400) D 12/13/23 03:31
PT 15.6 Sec (11.4-14.6) H 12/10/23 02:35
INR 1.26 12/10/23 02:35
APTT 37.5 Sec (23.4-35.0) H 12/09/23 10:50
Sodium 137 mmol/L (135-145) 12/13/23 03:31
Potassium 4.1 mmol/L (3.5-5.1) 12/13/23 03:31
BUN 18 mg/dl (9-20) 12/13/23 03:31
Creatinine 0.8 mg/dL (0.7-1.3) 12/13/23 03:31
Glucose 82 mg/dl (70-99) 12/13/23 03:31
Vital Signs and I&O:
Vital Signs
Temp Pulse Resp BP Pulse Ox
98.1 F 76 17 125/67 95
12/13/23 08:34 12/13/23 09:22 12/13/23 08:34 12/13/23 09:22 12/13/23 08:37
Vital Signs
Temp Pulse Resp BP Pulse Ox
98.1 F 76 17 125/67 95
12/13/23 08:34 12/13/23 09:22 12/13/23 08:34 12/13/23 09:22 12/13/23 08:37
Intake & Output
12/11/23 12/12/23 12/13/23 12/14/23
06:59 06:59 06:59 06:59
Intake Total 636.2 / 636.2 1230 / 1230 440 / 440 270 / 270
Output Total 910 / 910 10 400 / 400
Balance -273.8 / -273.8 1220 / 1220 40 / 40 270 / 270
Physical Exam
Physical Exam
General: Well developed, well nourished in NAD.
Neck: Supple, no JVD, HJR, carotids +2 B/L, no bruits bilaterally.
Heart: Non displaced PMI, RRR, no murmurs, No S3, S4, no rubs.
Lungs: Scattered rhonchi
Sternal dressings noted
Extremities: No clubbing, cyanosis or edema bilaterally.
Neuro: Grossly nonfocal, awake, alert and oriented x3.
--- NOTE | 2023-12-13 10:21 | W.DCSUMMARY ---
Discharge Summary
Discharge Data
Date of Admission: 12/09/23
Date of Discharge: 12/13/23
Total time spent discharging patient (in min): 45
-
Pending Results: No
Hospital Course
Primary care physician:
Dr. Jefe Alexandre
Outpatient compensation business partner:
Dr. Kwan
Inpatient consultants:
DCA, hog counter
Procedures:
1. Surgical aortic valve replacement [27 mm bioprosthesis] and Left atrial appendage exclusion [35 mm clip]
Primary Diagnosis:
1. Severe aortic valve stenosis with moderate degree of insufficiency, mixed pathology
Secondary Diagnoses:
1. Non ischemic Cardiomyopathy, Chronic Systolic and Diastolic Dysfunction with Moderately reduced left ventricular ejection fraction likely secondary to valvular pathology
2. Acute postop hyponatremia
3. Hyperlipidemia
4. Hypertension
HPI: 63-year-old male who was incidentally found to have a new left bundle branch block and later underwent an echocardiogram. He was found to have a depressed left ventricular ejection fraction with aortic valve stenosis. He presented electively
on 12/08 for a surgical aortic valve replacement with Dr. Mathews.
Hospital course: Patient presented on 12/08 for an elective AVR with Dr. Mathews. Postoperatively he returned to the CVICU on Levophed, insulin, and Precedex infusions. His Precedex was weaned off and patient was extubated later that evening. On
12/09 postoperative day #1 patient's García catheter was removed and declined. Patient was started on metoprolol 12.5 mg twice daily and transition to telemetry phase once insulin infusion was turned off. On 12/10 postoperative day #2, patient was
doing well however had increased PVCs throughout the day his chest tubes were removed. On 12/11 postoperative day #3 beta-blockers were increased and Farxiga was resumed. Patient preoperatively was on Entresto however systolic blood pressures were
too low to resume Entresto. On 12/12 postoperative day #4 patient pacing wire was cut at the skin and he was diuresed with 40 mg of IV Lasix and toprol-XL was increased for improved HR control. 2 view chest x-ray remained stable and repeat
echocardiogram showed and improved EF. He was deemed stable for discharge and prescriptions were sent to his preferred pharmacy.
Home medication changes:
See below
Discharge Plan
-
Patient Disposition: Home (Routine Discharge)
Discharge Diagnosis/Procedures: /AVR
Condition: Fair
Diet: Low Cholesterol and Low Sodium
Activity: As tolerated
Driving Restrictions: Not until seen by your Dr
Bathing Restrictions: OK to Shower
Other Services: Cardiac Rehab
Specialty Instructions: Weigh Daily- Call MD for wt gain/loss 3 lbs overnight/5 lbs in 1 week
Activity Restrictions/Additional Instructions:
ACTIVITY:
-No strenuous activity: no heavy lifting, pushing, pulling anything over 15 pounds for one month
-continue to use stairs as tolerated
DRIVING RESTRICTIONS:
-No driving for one month or until approved by your surgeon
WOUND CARE:
-Shower daily. Use soap & water.
-No lotions, creams or powders on incision area.
DIET:
-continue a low fat/low cholesterol diet.
-IF you are diabetic, continue carb controlled diet.
CARDIAC REHAB:
-Please make appointment to start in 5-6 weeks with your local hospital program. (See Cardiac Rehabilitation Discharge Booklet).
SPECIALTY INSTRUCTIONS:
-Weigh yourself daily. Call your physician for any weight gain/loss of 3 lbs overnight or 5 lbs in one week.
-REPORT any clicking noise or uneven appearance of your sternum to your surgeon immediately.
-If you smoke, you are instructed to quit. The CT smoking hotline phone number is [phone]
Instructions: Aortic Valve Replacement (DC)
Referrals:
CT Transitional Care Nurse [Outside] - in one to two days
(
The Cardiothoracic Transitional Care Nurse will call you to set up a visit in 1-2 days.)
[facility] [Outside] - 01/20/24 1:00 pm
(Cardiac Rehab Orientation and� First Exercise appointment is on 01/20/24 at 1pm.
The Cardiac Rehab gym is located on the first floor of the [facility].)
Jefe Alexandre MD [Family Provider] - in four to six weeks (Please make an appointment in four to six weeks. )
Kaylie Bray PA-C [Specified Professional Personl] - 01/26/24 1:20 pm
Zaki Mathews MD [Active] - 01/11/24 2:15 pm
Additional Discharge Medication Instructions: please note that the frequency of your metoprolol has changed to twice a day
DO NOT RESUME ENTRESTO UNTIL DIRECTED BY A MEDICAL PROFESSIONAL
Prescriptions:
New
cyclobenzaprine 10 mg Tablet
5 mg PO Q8HPRN PRN (Reason: muscle spasm) Qty: 30 0RF
acetaminophen 325 mg Tablet
650 mg PO Q4HPRN PRN (Reason: mild pain,headache,temp >101F ) Qty: 0 0RF
gabapentin 100 mg Capsule
100 mg PO TID Qty: 30 0RF
oxycodone 5 mg Tablet
2.5 mg PO Q4HPRN PRN (Reason: severe pain) Qty: 10 0RF
metoprolol succinate [Toprol XL] 50 mg tablet extended release 24 hr
50 mg PO BID Qty: 90 0RF
Continued
lactase [Dairy Relief] 1 CAPSULE tablet
1 cap PO PRN PRN (Reason: lactose intollerance)
fluticasone propionate 1 SPRAY spray,suspension
1 spray intranasal PRN PRN (Reason: nasal congestion)
rosuvastatin 20 mg Tablet
20 mg PO HS
cholecalciferol (vitamin D3) [Vitamin D3] 125 mcg (5,000 unit) Tablet
125 mcg PO DAILY
dapagliflozin propanediol [Farxiga] 10 mg Tablet
10 mg PO HS
aspirin 81 mg Capsule
81 mg PO HS
Held
Entresto 24-26 mg Tablet
1 tab PO BID
Hold Instructions: Resume on 12/27/23. Do not resume your entresto until directed by a medical professional
Discontinued
metoprolol succinate 25 mg Tablet Extended Release 24 Hr
25 mg PO HS
Discharge Orders:
Discharge Patient (As Directed); Ordered 12/13/23
Ordered By: Lashawn Mejia
Care Plan Goals
Care Plan Goals:
Problem: Readiness for enhanced knowledge related to diagnosis and treatment plan
Goal: Understand your diagnosis and treatment plan needs, including medications if applicable.
Instructions: Know your diagnosis, underlying causes and treatment plan options, including medications if applicable. Consult with your health care team to learn about your diagnosis and treatment plan, including medications if applicable.
Discharge Date and Time
Print Language: ESTONIAN
--- NOTE | 2023-12-13 10:29 | W.[place]-PDMP ---
[place]-PD[place]
-
Checked the [place]- Pres[place] Drug Monitoring Program website, no red flags identified; safe to proceed with prescription.
--- NOTE | 2023-12-13 18:07 | PTCARENOTE ---
Patient set up to shower and dress, completed independently. PIV removed. Discharge instructions thoroughly reviewed w/patient and spouse, all questions answered. Patient and all belongings transported to waiting vehicle for d/c home.
== END 2023-12-13 18:27 | disposition home or self-care (01) | DRG 220 ==
LOC: CVICU 05:16
PROVIDERS: Anesthesiology; Physician Assistant Medical; ADMITTING PHYSICIAN Thoracic Surgery (Cardiothoracic Vascular Surgery); CONSULT PHYSICIAN Internal Medicine Critical Care Medicine; FAMILY PHYSICIAN Family Medicine
PROC: 02RF08Z Replacement of Aortic Valve with Zooplastic Tissue, Open Approach (ICD-10-PCS; 2023-12-09)
PROC: B24BZZ4 Ultrasonography of Heart with Aorta, Transesophageal (ICD-10-PCS; 2023-12-09)
PROC: 02L70CK Occlusion of Left Atrial Appendage with Extraluminal Device, Open Approach (ICD-10-PCS; 2023-12-09)
PROC: 5A1221Z Performance of Cardiac Output, Continuous (ICD-10-PCS; 2023-12-09)
DX: I35.2 Nonrheumatic aortic (valve) stenosis with insufficiency (principal); D62 Acute posthemorrhagic anemia; E87.1 Hypo-osmolality and hyponatremia; I42.8 Other cardiomyopathies; I50.22 Chronic systolic (congestive) heart failure; J98.11 Atelectasis; I25.10 Atherosclerotic heart disease of native coronary artery without angina pectoris; E78.5 Hyperlipidemia, unspecified; I44.7 Left bundle-branch block, unspecified; R73.03 Prediabetes; D69.59 Other secondary thrombocytopenia; E86.1 Hypovolemia; E87.70 Fluid overload, unspecified; I11.0 Hypertensive heart disease with heart failure; E73.9 Lactose intolerance, unspecified; E66.811 Obesity, class 1; Z68.30 Body mass index [BMI] 30.0-30.9, adult; Z79.82 Long term (current) use of aspirin; Z79.899 Other long term (current) drug therapy; Z82.49 Family history of ischemic heart disease and other diseases of the circulatory system
CPT/HCPCS: 88305; 88311; 93308; 36415; 71045; 71046; 80048; 80053; 81003; 82248; 82330; 82565; 82805; 82810; 82947; 82962; 83036; 83735; 84132; 84302; 84520; 85014; 85018; 85025; 85027; 85049; 85610; 85730; 86850; 86900; 86901; 86920; 87070; 93005; 93312; 93320; 93325; 93880; 94002; J2916

== ENCOUNTER → 2024-02-03 12:56 | Outpatient (REF) | payer BC, SELFPAY | LOC: RCS 12:56 | PROVIDERS: ATTENDING PHYSICIAN Internal Medicine Interventional Cardiology; FAMILY PHYSICIAN Family Medicine | DX: I44.7 Left bundle-branch block, unspecified (principal); Z95.3 Presence of xenogenic heart valve; I42.8 Other cardiomyopathies | CPT/HCPCS: 93306 ==

== ENCOUNTER 2024-02-13 15:40 | Outpatient (RCR) | payer BC, SELFPAY | END 2024-02-13 23:59 | disposition home or self-care (01) | LOC: CRHB 15:40 | PROVIDERS: ATTENDING PHYSICIAN Internal Medicine Interventional Cardiology; FAMILY PHYSICIAN Family Medicine | DX: Z95.4 Presence of other heart-valve replacement (principal) | CPT/HCPCS: 93306; 93797; 93798 ==

== ENCOUNTER 2024-03-07 12:42 | Outpatient (RCR) | payer BC, SELFPAY | END 2024-03-07 23:59 | disposition home or self-care (01) | LOC: CRHB 12:42 | PROVIDERS: ATTENDING PHYSICIAN Internal Medicine Interventional Cardiology; FAMILY PHYSICIAN Family Medicine | DX: Z95.4 Presence of other heart-valve replacement (principal) | CPT/HCPCS: 93797; 93798; G0422; G0423 ==

== ENCOUNTER → 2024-09-27 10:14 | Outpatient (REF) | payer BC, SELFPAY | LOC: RCS 10:14 | PROVIDERS: ATTENDING PHYSICIAN Internal Medicine Interventional Cardiology; FAMILY PHYSICIAN Family Medicine | DX: Z95.3 Presence of xenogenic heart valve (principal); I10 Essential (primary) hypertension; I42.8 Other cardiomyopathies; I35.0 Nonrheumatic aortic (valve) stenosis; Q23.81 Bicuspid aortic valve | CPT/HCPCS: 93306 ==